=== PATIENT | male | born 1945 | race Caucasian/White ===

== ENCOUNTER 2018-02-23 19:17 | Inpatient (IN) | payer MEDICARE ==
[2018-02-23] MEDS ORDERED: PROVENTIL IH ONE (19:35)
[2018-02-23 19:40] LABS: Basophils # (Auto) 0.1 K/mm3 (0.0-0.1); Basophils % (Auto) 1.3 % (0.0-1.8); Eosinophils # (Auto) 0.3 K/mm3 (0.0-0.4); Eosinophils % (Auto) 4.2 % (0.0-4.3); Hematocrit 47.3 % (35.5-45.6); Hemoglobin 15.4 gm/dl (11.8-15.2); Lymphocytes # (Auto) 1.3 K/mm3 (1.2-5.4); Mean Corpuscular HGB Conc 33 % (32-34); Mean Corpuscular Hemoglobin 28 pg (28-32); Mean Corpuscular Volume 85 fl (84-94); Monocytes # (Auto) 0.5 K/mm3 (0.0-0.8); Monocytes % (Auto) 6.6 % (0.0-7.3); Platelet Count 190 K/mm3 (140-440); Red Blood Count 5.55 M/mm3 (3.65-5.03); Red Cell Distribution Width 15.2 % (13.2-15.2)
[2018-02-23 19:49] LABS: BUN/Creatinine Ratio 13; Blood Urea Nitrogen 13 mg/dL (9-20); Calcium 8.9 mg/dL (8.4-10.2); Hemolysis Index 17
--- NOTE | 2018-02-23 19:54 | XRay Report ---
FINAL REPORT EXAM: XR CHEST 1V AP HISTORY: Shortness of breath TECHNIQUE: 2, portable chest x-rays. PRIORS: None. FINDINGS: Cardiac and mediastinal silhouette within normal limits. Lungs are mildly hyperinflated, without significant vascular congestion. No focal consolidation or apparent pneumothorax. Bony thorax grossly unremarkable. IMPRESSION: 1. No acute findings.
[2018-02-23] MEDS ORDERED: HumuLIN R IV ONE (20:06)
[2018-02-23] MEDS ORDERED: MAGNESIUM SULFATE 2GM/50ML 2 GM/50 ML BAG IV ONE (20:09)
[2018-02-23] MEDS: ATROVENT IH ONE ×2 (20:47→20:53)
[2018-02-23] MEDS: PROVENTIL IH ONE ×2 (20:48→20:53)
--- NOTE | 2018-02-23 23:17 | Emergency Department Report ---
ED Shortness of Breath HPI - General Chief Complaint: Dyspnea/Respdistress Stated Complaint: MONICA Time Seen by Provider: 02/23/18 19:50 Source: patient, EMS Mode of arrival: Stretcher Limitations: No Limitations - History of Present Illness MD Complaint: "asthma attack" - Related Data Allergies Allergy/AdvReac Type Severity Reaction Status Date / Time No Known Allergies Allergy Unverified 02/23/18 19:18 ED Review of Systems ROS: Stated complaint: MONICA Other details as noted in HPI ED Past Medical Hx - Past Medical History Hx Hypertension: Yes Hx COPD: Yes - Social History Smoking Status: Former Smoker Substance Use Type: Alcohol ED Physical Exam - General Limitations: No Limitations ED Course Vital Signs 02/23/18 02/23/18 02/23/18 19:18 19:24 19:34 Temperature 98 F Pulse Rate 109 H 97 H Pulse Rate [ Bilateral Throughout] Respiratory 24 Rate Respiratory Rate [Bilateral Throughout] Blood Pressure 166/90 O2 Sat by Pulse 97 99 99 Oximetry 02/23/18 02/23/18 02/23/18 19:46 19:57 20:00 Temperature Pulse Rate 99 H 102 H Pulse Rate [ 104 H Bilateral Throughout] Respiratory 18 20 Rate Respiratory 20 Rate [Bilateral Throughout] Blood Pressure 145/71 113/74 O2 Sat by Pulse 99 94 Oximetry 02/23/18 02/23/18 02/23/18 20:20 20:30 20:46 Temperature Pulse Rate 99 H 98 H Pulse Rate [ Bilateral Throughout] Respiratory 28 H 24 Rate Respiratory Rate [Bilateral Throughout] Blood Pressure 113/74 138/68 138/68 O2 Sat by Pulse 93 92 94 Oximetry 02/23/18 02/23/18 02/23/18 20:54 21:00 21:16 Temperature Pulse Rate 99 H 97 H Pulse Rate [ 95 H Bilateral Throughout] Respiratory 32 H 29 H 30 H Rate Respiratory 20 Rate [Bilateral Throughout] Blood Pressure 105/52 105/52 O2 Sat by Pulse 92 93 94 Oximetry 02/23/18 02/23/18 02/23/18 21:30 21:46 22:00 Temperature Pulse Rate 94 H 97 H 91 H Pulse Rate [ Bilateral Throughout] Respiratory 28 H 20 25 H Rate Respiratory Rate [Bilateral Throughout] Blood Pressure 128/71 128/71 129/65 O2 Sat by Pulse 94 94 92 Oximetry ED Medical Decision Making - Lab Data Result diagrams: 02/23/18 19:27 02/23/18 19:27 Critical care attestation.: If time is entered above; I have spent that time in minutes in the direct care of this critically ill patient, excluding procedure time. ED Disposition Disposition: 09 OP ADMIT IP TO THIS HOSP Is pt being admited?: Yes Does the pt Need Aspirin: No Condition: Stable Referrals: TRISH CAROLINA MD [Primary Care Provider] - 3-5 Days Time of Disposition: 23:15
--- NOTE | 2018-02-24 00:09 | Event Note ---
Date: 02/23/18 See dictated H/p in reports
[2018-02-24] MEDS ORDERED: TYLENOL PO PRN (00:10)
[2018-02-24] MEDS ORDERED: SODIUM CHLORIDE FLUSH SYRINGE 10 ML IV PRN (00:10)
[2018-02-24] MEDS ORDERED: ZOFRAN IV PRN (00:10)
[2018-02-24] MEDS ORDERED: DUONEB *Not for PRN Use IH (00:14)
[2018-02-24] MEDS ORDERED: HumaLOG SUB-Q ONE ×3 (00:16→03:00)
[2018-02-24] MEDS: PERCOCET 5/325 PO PRN ×2 (03:57→21:21)
--- NOTE | 2018-02-24 07:49 | History and Physical Report ---
CHIEF COMPLAINT: Increasing shortness of breath for 2 weeks, moreso for 2 days. HISTORY OF PRESENT ILLNESS: A 72-year-old male with history of COPD, nicotine dependence, comes in for increasing shortness of breath for 2 weeks, more so for the last 2 days. Cough productive of mucoid sputum. No fever or chills. No exacerbating or relieving factors. The patient does not have any nebulizer machine at home. The patient uses Ventolin inhaler. Follows with [facility], does not have a outpatient facility physical therapist. No recent travel. PAST MEDICAL HISTORY: Significant for COPD and hypertension. PAST SURGICAL HISTORY: None. SOCIAL HISTORY: Used to smoke until a few years ago. Stopped smoking. FAMILY HISTORY: Significant for hypertension. REVIEW OF SYSTEMS: Significant for increasing shortness of breath and cough productive of mucoid sputum. No fever. No chills. A 14-point review of systems done. Otherwise, negative. PHYSICAL EXAMINATION: GENERAL: Elderly male, obese, in moderate respiratory distress, lying in bed. VITAL SIGNS: Blood pressure is 129/75, pulse is 91, temperature is 98, respiratory rate is 16, and sats are 92%. HEENT: Unremarkable. Pupils equal and reactive. NECK: Supple, no lymphadenopathy, no thyromegaly. LUNGS: Bilateral inspiratory and expiratory rhonchi present. Diminished air entry. CARDIOVASCULAR: S1, S2 heard. No gallop, no murmur, no rub. Apical impulse in the left fifth intercostal space and midclavicular line. ABDOMEN: Soft and benign. No hepatosplenomegaly. No guarding, no rigidity. Hernial orifices are normal. EXTREMITIES: Good pedal pulses. No pedal edema. CENTRAL NERVOUS SYSTEM: Alert and oriented x 4, nonfocal exam. SKIN: Normal. LABORATORY DATA: Significant for white count of 7800, H and H is 15.4 and 47.8, platelet count is 190,000. Glucose is 284. Sodium is 134, potassium is 4.6, chloride is 93, and bicarbonate is 31. ABG is not done. Hemoglobin A1c is 11.3. ASSESSMENT AND PLAN: 1. Acute respiratory failure secondary to hypoxia and chronic obstructive pulmonary disease. The patient initiated on intravenous Solu-Medrol, intravenous Levaquin, and DuoNebs q.3 hours as needed and q.6 round the clock. BiPAP if necessary, intubate if necessary. 2. Chronic obstructive pulmonary disease exacerbation . Continue intravenous Levaquin, Solu-Medrol, and DuoNeb. The patient to be discharged on nebulizer machine. The patient does not have a nebulizer machine at home. 3. Diabetes, uncontrolled. The patient initiated on coverage. We will add insulin 70/30, 20 units twice a day. His sugars may run high because of the Solu-Medrol, but his baseline glucose levels are high. His A1c is 11.3. The patient to be discharged on insulin 70/30 and to educate the patient about his uncontrolled diabetes. 4. Hypertension, well controlled. The patient not on any antihypertensives. We will initiate antihypertensives if necessary. 5. Deep venous thrombosis prophylaxis, heparin 5000 q.12. 6. Gastrointestinal prophylaxis, famotidine ordered. JOB# [id number] JOEL/LAURIE
[2018-02-24] MEDS: DUONEB *Not for PRN Use IH SCH ×3 (09:13→22:10)
[2018-02-24] MEDS: HEPARIN SUB-Q SCH ×2 (10:32→21:22)
[2018-02-24] MEDS: LEVAQUIN 750MG/150ML 750 MG/150 ML BAG IV SCH (10:32)
[2018-02-24] MEDS: PEPCID PO SCH ×2 (10:32→21:22)
[2018-02-24] MEDS: SODIUM CHLORIDE FLUSH SYRINGE 10 ML IV SCH ×2 (10:33→21:23)
[2018-02-24] MEDS: HumuLIN R SUB-Q SCH ×3 (12:47→22:22)
--- NOTE | 2018-02-24 14:02 | Progress Note ---
Assessment and Plan Acute on chronic hypoxic and hypercapnic respiratory failure - Secondary to acute COPD exacerbation - Will provide scheduled nebulizers breathing treatment - Place on empiric steroid and antibiotic - will get sputum culture, chest x-ray was unremarkable - Provide supplemental oxygen to keep oxygen saturation above 92% - Consider to consult pulmonary if no improvement in next 24 hours COPD exacerbation - We'll continue on scheduled nebulizer breathing treatment, empiric steroid and antibiotic Diabetes mellitus type 2, uncontrolled, A1c 11.3 - We will continue consistent carbohydrate diet and home regimen for insulin - We'll place on sliding scale of insulin as patient will be on empiric steroid Hypertension, benign - We will resume home medications, monitor BP - Provide DVT prophylaxis with Lovenox. Brief history: This is a 72-year-old male with history of COPD nicotine dependence coming in for increasing shortness of breath for 2 weeks along with productive cough of mucoid sputum. Radiological test: Chest x-ray: No acute infiltrates Hospitalist Physical exam: GENERAL: well-developed and well-nourished male lying on bed appeared to be in no discomfort. HEENT: Normocephalic. Atraumatic. No conjunctival congestion or icterus. Patient has moist mucous membranes. NECK: Supple. Trachea midline. CHEST/LUNGS: Diminished breath sounds auscultated bilaterally, breathing nonlabored. No wheezes crackles or rhonchi. HEART/CARDIOVASCULAR: Regular in rate and rhythm. S1 and S2 positive. ABDOMEN: Abdomen is soft, nontender. Patient has normal bowel sounds. SKIN: There is no rash. Warm and dry. NEURO: No focal motor deficit. Follows command. MUSCULOSKELETAL: No joint effusion or tenderness. EXTRIMITY: No edema, no cyanosis or clubbing. PSYCH: Cooperative. Subjective Date of service: 02/24/18 Interval history: Patient seen and examined. Medical records and medication list reviewed. No acute event overnight noted by the RN. Patient denies any chest pain c/o difficulty breathing with minimal ambulation. Patient is tolerating diet. Discussed plan of care at bedside with patient. Objective - Constitutional Vitals: Vital Signs - 12hr 02/24/18 02/24/18 02/24/18 02:32 03:29 03:57 Temperature 98.3 F Pulse Rate Respiratory 20 20 20 Rate Blood Pressure 151/88 O2 Sat by Pulse Oximetry 02/24/18 02/24/18 02/24/18 04:34 04:57 07:24 Temperature 97.8 F Pulse Rate 84 Respiratory 20 20 Rate Blood Pressure 146/77 O2 Sat by Pulse 92 94 Oximetry 02/24/18 02/24/18 10:00 11:03 Temperature Pulse Rate 83 Respiratory 18 Rate Blood Pressure O2 Sat by Pulse Oximetry - Labs CBC & Chem 7: 02/23/18 19:27 02/23/18 19:27 Labs: Abnormal lab results 02/23/18 02/23/18 02/23/18 Range/Units 19:27 19:27 22:57 RBC 5.55 H (3.65-5.03) M/mm3 Hgb 15.4 H (11.8-15.2) gm/dl Hct 47.3 H (35.5-45.6) % Seg Neutrophils % 70.9 H (40.0-70.0) % Sodium 134 L (137-145) mmol/L Chloride 93.5 L (98-107) mmol/L Carbon Dioxide 31 H (22-30) mmol/L Glucose 422 H (75-100) mg/dL POC Glucose 284 H (70-105) Hemoglobin A1c (4-6) % 02/24/18 02/24/18 02/24/18 Range/Units 00:19 02:32 07:47 RBC (3.65-5.03) M/mm3 Hgb (11.8-15.2) gm/dl Hct (35.5-45.6) % Seg Neutrophils % (40.0-70.0) % Sodium (137-145) mmol/L Chloride (98-107) mmol/L Carbon Dioxide (22-30) mmol/L Glucose (75-100) mg/dL POC Glucose 335 H 326 H (70-105) Hemoglobin A1c 11.3 H (4-6) % 02/24/18 Range/Units 11:55 RBC (3.65-5.03) M/mm3 Hgb (11.8-15.2) gm/dl Hct (35.5-45.6) % Seg Neutrophils % (40.0-70.0) % Sodium (137-145) mmol/L Chloride (98-107) mmol/L Carbon Dioxide (22-30) mmol/L Glucose (75-100) mg/dL POC Glucose 381 H (70-105) Hemoglobin A1c (4-6) %
[2018-02-24] MEDS ORDERED: PROVENTIL IH PRN (17:00)
[2018-02-24] MEDS: MORPHINE IV PRN (23:26)
[2018-02-25 06:27] LABS: Hematocrit 49.2 % (35.5-45.6); Hemoglobin 15.9 gm/dl (11.8-15.2); Mean Corpuscular HGB Conc 32 % (32-34); Mean Corpuscular Hemoglobin 28 pg (28-32); Mean Corpuscular Volume 86 fl (84-94); Platelet Count 216 K/mm3 (140-440); Red Blood Count 5.74 M/mm3 (3.65-5.03); Red Cell Distribution Width 15.3 % (13.2-15.2)
[2018-02-25 06:36] LABS: Alanine Aminotransferase 39 units/L (7-56); BUN/Creatinine Ratio 24; Blood Urea Nitrogen 19 mg/dL (9-20); Calcium 9.1 mg/dL (8.4-10.2); Hemolysis Index 31
[2018-02-25] MEDS: DUONEB *Not for PRN Use IH SCH ×3 (07:24→20:59)
[2018-02-25] MEDS: HumuLIN R SUB-Q SCH ×4 (08:31→23:37)
[2018-02-25 08:42] LABS: Basophils % (Manual) 0 % (0.0-1.8); Eosinophils % (Manual) 0 % (0.0-4.3); Total Cells Counted 100
[2018-02-25 08:43] LABS: Platelet Estimate Consistent w Auto; RBC Morphology Normal
[2018-02-25] MEDS: LEVAQUIN 750MG/150ML 750 MG/150 ML BAG IV SCH (09:59)
[2018-02-25] MEDS: HEPARIN SUB-Q SCH ×2 (09:59→23:39)
[2018-02-25] MEDS: PEPCID PO SCH ×2 (10:17→23:37)
[2018-02-25] MEDS: SODIUM CHLORIDE FLUSH SYRINGE 10 ML IV SCH ×2 (10:17→23:39)
[2018-02-25] MEDS: MORPHINE IV PRN (13:31)
--- NOTE | 2018-02-25 17:10 | Progress Note ---
Assessment and Plan Acute hypoxic and hypercapnic respiratory failure - Secondary to acute COPD exacerbation - Will provide scheduled nebulizers breathing treatment - cont on tapering empiric steroid and antibiotic - chest x-ray was unremarkable - Provide supplemental oxygen to keep oxygen saturation above 92% COPD exacerbation - We'll continue on scheduled nebulizer breathing treatment, empiric steroid and antibiotic Diabetes mellitus type 2, uncontrolled, A1c 11.3 - We will continue consistent carbohydrate diet and home regimen for insulin - On sliding scale of insulin as patient will be on empiric steroid Hypertension, benign - Resumed home medications, monitor BP - Provide DVT prophylaxis with Lovenox. Brief history: This is a 72-year-old male with history of COPD nicotine dependence coming in for increasing shortness of breath for 2 weeks along with productive cough of mucoid sputum. Radiological test: Chest x-ray: No acute infiltrates Hospitalist Physical exam: GENERAL: well-developed and well-nourished male lying on bed appeared to be in no discomfort. HEENT: Normocephalic. Atraumatic. No conjunctival congestion or icterus. Patient has moist mucous membranes. NECK: Supple. Trachea midline. CHEST/LUNGS: Diminished breath sounds auscultated bilaterally, breathing nonlabored. No wheezes crackles or rhonchi. HEART/CARDIOVASCULAR: Regular in rate and rhythm. S1 and S2 positive. ABDOMEN: Abdomen is soft, nontender. Patient has normal bowel sounds. SKIN: There is no rash. Warm and dry. NEURO: No focal motor deficit. Follows command. MUSCULOSKELETAL: No joint effusion or tenderness. EXTRIMITY: No edema, no cyanosis or clubbing. PSYCH: Cooperative. Subjective Date of service: 02/25/18 Interval history: Patient seen and examined. Medical records and medication list reviewed. No acute event overnight noted by the RN. Patient denies any chest pain c/o difficulty breathing with minimal ambulation. Patient is tolerating diet. states not in his baseline yet Discussed plan of care at bedside with patient. Objective - Constitutional Vitals: Vital Signs - 12hr 02/25/18 02/25/18 02/25/18 07:09 07:24 07:36 Temperature 97.5 F L Pulse Rate 76 Pulse Rate [ 91 H 96 H Anterior Bilateral Throughout] Respiratory 22 Rate Respiratory 16 16 Rate [Anterior Bilateral Throughout] Blood Pressure 124/69 O2 Sat by Pulse 95 Oximetry 02/25/18 02/25/18 02/25/18 10:00 13:46 13:50 Temperature Pulse Rate Pulse Rate [ 85 Anterior Bilateral Throughout] Respiratory Rate Respiratory 16 Rate [Anterior Bilateral Throughout] Blood Pressure 146/84 O2 Sat by Pulse 98 Oximetry 02/25/18 14:00 Temperature 99 F Pulse Rate Pulse Rate [ Anterior Bilateral Throughout] Respiratory 20 Rate Respiratory Rate [Anterior Bilateral Throughout] Blood Pressure O2 Sat by Pulse Oximetry - Labs CBC & Chem 7: 02/25/18 05:32 02/25/18 05:32 Labs: Abnormal lab results 02/24/18 02/25/18 02/25/18 Range/Units 22:12 05:32 05:32 WBC 12.5 H (4.5-11.0) K/mm3 RBC 5.74 H (3.65-5.03) M/mm3 Hgb 15.9 H (11.8-15.2) gm/dl Hct 49.2 H (35.5-45.6) % RDW 15.3 H (13.2-15.2) % Seg Neuts % (Manual) 94.0 H (40.0-70.0) % Lymphocytes % (Manual) 4.0 L (13.4-35.0) % Seg Neutrophils # Man 11.8 H (1.8-7.7) K/mm3 Lymphocytes # (Manual) 0.5 L (1.2-5.4) K/mm3 Sodium 133 L (137-145) mmol/L Potassium 5.3 H (3.6-5.0) mmol/L Chloride 91.3 L (98-107) mmol/L Glucose 395 H (75-100) mg/dL POC Glucose 358 H (70-105) 02/25/18 02/25/18 02/25/18 Range/Units 07:13 12:29 16:26 WBC (4.5-11.0) K/mm3 RBC (3.65-5.03) M/mm3 Hgb (11.8-15.2) gm/dl Hct (35.5-45.6) % RDW (13.2-15.2) % Seg Neuts % (Manual) (40.0-70.0) % Lymphocytes % (Manual) (13.4-35.0) % Seg Neutrophils # Man (1.8-7.7) K/mm3 Lymphocytes # (Manual) (1.2-5.4) K/mm3 Sodium (137-145) mmol/L Potassium (3.6-5.0) mmol/L Chloride (98-107) mmol/L Glucose (75-100) mg/dL POC Glucose 287 H 317 H 358 H (70-105)
[2018-02-26] MEDS: MORPHINE IV PRN (01:04)
[2018-02-26] MEDS: DUONEB *Not for PRN Use IH SCH ×2 (07:29→13:09)
[2018-02-26] MEDS: HumuLIN R SUB-Q SCH ×2 (08:21→11:54)
[2018-02-26] MEDS: HEPARIN SUB-Q SCH (09:41)
[2018-02-26] MEDS: PEPCID PO SCH (09:41)
[2018-02-26] MEDS: SODIUM CHLORIDE FLUSH SYRINGE 10 ML IV SCH (09:42)
[2018-02-26] MEDS ORDERED: LEVAQUIN PO SCH (10:00)
[2018-02-26] MEDS: PERCOCET 5/325 PO PRN (10:43)
--- NOTE | 2018-02-26 13:53 | Discharge Summary ---
Providers - Providers Date of Admission: 02/24/18 00:15 Date of discharge: 02/26/18 Attending physician: NELSON OSCAR 02/24/18 02:50 Consult to Dietitian/Nutrition [CONS] Routine Physician Instructions: New onset Diabetes Reason For Exam: Reason for Consult: Diet education Primary care physician: TRISH CAROLINA Hospitalization Condition: Stable Hospital course: Brief history: This is a 72-year-old male with history of COPD, nicotine dependence coming in for increasing shortness of breath for 2 weeks along with productive cough of mucoid sputum. He was admitted for further evaluation and management. Discharge diagnosis and management. Acute hypoxic and hypercapnic respiratory failure - Secondary to acute COPD exacerbation - managed with scheduled nebulizers breathing treatment, tapering empiric steroid and antibiotic - chest x-ray was unremarkable - Provided supplemental oxygen to keep oxygen saturation above 92% COPD exacerbation - placed on scheduled nebulizer breathing treatment, empiric steroid and antibiotic Diabetes mellitus type 2, uncontrolled, A1c 11.3 - started on consistent carbohydrate diet and home regimen for insulin - Also given sliding scale of insulin as patient was placed on empiric steroid -His long-acting insulin dose was increased to 25 units twice a day Hypertension, benign - monitored BP, placed on amlodipine on discharge - Provide DVT prophylaxis with Lovenox. Disposition: Home with family support in stable condition. Radiological test: Chest x-ray: No acute infiltrates Hospitalist Physical exam: GENERAL: well-developed and well-nourished male lying on bed appeared to be in no discomfort. HEENT: Normocephalic. Atraumatic. No conjunctival congestion or icterus. Patient has moist mucous membranes. NECK: Supple. Trachea midline. CHEST/LUNGS: Diminished breath sounds auscultated bilaterally, breathing nonlabored. No wheezes crackles or rhonchi. HEART/CARDIOVASCULAR: Regular in rate and rhythm. S1 and S2 positive. ABDOMEN: Abdomen is soft, nontender. Patient has normal bowel sounds. SKIN: There is no rash. Warm and dry. NEURO: No focal motor deficit. Follows command. MUSCULOSKELETAL: No joint effusion or tenderness. EXTRIMITY: No edema, no cyanosis or clubbing. PSYCH: Cooperative. Disposition: TO HOME OR SELFCARE Time spent for discharge: 32 minutes Core Measure Documentation - Palliative Care Palliative Care/ Comfort Measures: Not Applicable - Core Measures Any of the following diagnoses?: none Exam - Constitutional Vitals: Temp Pulse Resp BP Pulse Ox 98.4 F 74 20 127/72 95 02/26/18 07:43 02/26/18 10:00 02/26/18 10:43 02/26/18 07:43 02/26/18 10:00 Plan Activity: advance as tolerated Weight Bearing Status: Weight Bear as Tolerated Diet: diabetic Follow up with: TRISH CAROLINA MD [Primary Care Provider] - 3-5 Days Prescriptions: ALBUTEROL Inhaler [Proair] 2 puff IH QID PRN 30 Days #1 device PRN Reason: Shortness Of Breath amLODIPine [Norvasc] 10 mg PO DAILY #30 tab Budesonide/Formoterol Fumarate [Symbicort 160-4.5 Mcg Inhaler] 10.2 gm IH BID 30 Days #1 [email or web address] Insulin NPH/Regular [NovoLIN 70/30] 25 unit SUB-Q BIDDIAB 30 Days units Insulin Regular, Human [HumuLIN R] See Protocol SUB-Q ACHS 30 Days units Levofloxacin [Levaquin TAB] 750 mg PO Q24HR #4 tablet Prednisone 50 mg PO QAC #5 tablet
[2018-02-26 14:39] VITALS: BP 159/81
== END 2018-02-26 15:25 | disposition home or self-care (01) | DRG 189 ==
LOC: ED 19:17 → 2B-ACE 02-24 00:15
PROVIDERS: ADMIT Internal Medicine; ATTEND Internal Medicine
DX: J96.21 Acute and chronic respiratory failure with hypoxia (principal); J44.1 Chronic obstructive pulmonary disease with (acute) exacerbation; J96.22 Acute and chronic respiratory failure with hypercapnia; E11.65 Type 2 diabetes mellitus with hyperglycemia; I10 Essential (primary) hypertension; Z87.891 Personal history of nicotine dependence; Z82.49 Family history of ischemic heart disease and other diseases of the circulatory system
CPT/HCPCS: 36415; 71045; 80048; 80053; 82962; 83036; 85007; 85025; 93005; 93010; 94640; 94644; 94760; 96365; 96375; J1644; J1815; J1956; J2270; J2920; J2930; J3475

== ENCOUNTER 2020-03-17 21:56 | Inpatient (IN) | payer MEDICARE ==
--- NOTE | 2020-03-17 22:14 | Emergency Department Report ---
ED General Adult HPI - General Stated complaint: GENERAL WEAKNESS/TESTICULAR SWELLING Time Seen by Provider: 03/17/20 22:03 Source: patient, EMS - History of Present Illness Initial comments: Patient is 74 years old male with history of hypertension, diabetes, BPH, COPD and asthma. Patient brought to the emergency room via EMS from home for evaluation of urine retention and right testicular swelling started today. Patient stated that he had similar episode in January where he had a Haskins catheter for a week. Patient also noticed to have a shortness of breath. Patient stated that he is having bilateral lower extremity swelling. Patient denied any fever or chills. No nausea or vomiting. No chest pain. - Related Data Previous Rx's Medication Instructions Recorded Last Taken Type Albuterol INH(or & Nicu Only) 2 puff IH QID PRN 30 Days #1 device 02/26/18 Unknown Rx [Proair] Budesonide/Formoterol Fumarate 10.2 gm IH BID 30 Days #1 02/26/18 Unknown Rx [Symbicort 160-4.5 Mcg Inhaler] [email or web address] Insulin NPH/Regular [NovoLIN 70/30] 25 unit SUB-Q BIDDIAB 30 Days 02/26/18 Unknown Rx units Insulin Regular, Human [HumuLIN R] See Protocol SUB-Q ACHS 30 Days 02/26/18 Unknown Rx units amLODIPine 10 mg PO DAILY #30 tab 02/26/18 Unknown Rx levoFLOXacin [Levaquin TAB] 750 mg PO Q24HR #4 tablet 02/26/18 Unknown Rx predniSONE [Prednisone] 50 mg PO QAC #5 tablet 02/26/18 Unknown Rx Allergies Allergy/AdvReac Type Severity Reaction Status Date / Time No Known Allergies Allergy Unverified 02/23/18 19:18 ED Review of Systems ROS: Stated complaint: GENERAL WEAKNESS/TESTICULAR SWELLING Other details as noted in HPI Comment: All other systems reviewed and negative Constitutional: denies: chills, fever Respiratory: orthopnea, shortness of breath, SOB with exertion, SOB at rest. denies: cough Cardiovascular: denies: chest pain, palpitations, dyspnea on exertion Gastrointestinal: denies: abdominal pain, nausea, vomiting Genitourinary: testicular mass (Swelling) Musculoskeletal: denies: back pain ED Past Medical Hx - Past Medical History Hx Hypertension: Yes Hx Diabetes: Yes Hx GERD: Yes Hx Asthma: Yes Hx COPD: Yes - Surgical History Hx Cholecystectomy: Yes - Social History Smoking Status: Never Smoker Substance Use Type: None - Medications Home Medications: Home Medications Medication Instructions Recorded Confirmed Last Taken Type Albuterol INH(or & Nicu Only) 2 puff IH QID PRN 30 Days #1 device 02/26/18 Unknown Rx [Proair] Budesonide/Formoterol Fumarate 10.2 gm IH BID 30 Days #1 02/26/18 Unknown Rx [Symbicort 160-4.5 Mcg Inhaler] [email or web address] Insulin NPH/Regular [NovoLIN 70/30] 25 unit SUB-Q BIDDIAB 30 Days 02/26/18 Unknown Rx units Insulin Regular, Human [HumuLIN R] See Protocol SUB-Q ACHS 30 Days 02/26/18 Unknown Rx units amLODIPine 10 mg PO DAILY #30 tab 02/26/18 Unknown Rx levoFLOXacin [Levaquin TAB] 750 mg PO Q24HR #4 tablet 02/26/18 Unknown Rx predniSONE [Prednisone] 50 mg PO QAC #5 tablet 02/26/18 Unknown Rx ED Physical Exam - General General appearance: alert, in no apparent distress - Head Head exam: Present: atraumatic, normocephalic, normal inspection - Eye Eye exam: Present: normal appearance, PERRL - ENT ENT exam: Present: normal exam, normal orophraynx, mucous membranes moist - Neck Neck exam: Present: normal inspection, full ROM. Absent: tenderness, meningis mus - Respiratory Respiratory exam: Present: wheezes, rales - Cardiovascular Cardiovascular Exam: Present: regular rate, normal rhythm, normal heart sounds - GI/Abdominal GI/Abdominal exam: Present: soft, normal bowel sounds. Absent: distended, tenderness, guarding, rebound, rigid, organomegaly, mass, bruit, pulsatile mass, hernia - Extremities Exam Extremities exam: Present: normal inspection, full ROM, normal capillary refill - Back Exam Back exam: Present: normal inspection, full ROM. Absent: CVA tenderness (R), CVA tenderness (L) - Neurological Exam Neurological exam: Present: alert, oriented X3, CN II-XII intact - Psychiatric Psychiatric exam: Present: normal mood - Skin Skin exam: Present: warm, intact, normal color ED Course Vital Signs 03/17/20 03/17/20 03/17/20 22:15 22:27 23:04 Temperature 99.1 F Pulse Rate 106 H Respiratory 24 24 24 Rate Blood Pressure 105/59 Blood Pressure 105/59 [Right] O2 Sat by Pulse 99 99 Oximetry 03/18/20 03/18/20 02:00 03:01 Temperature Pulse Rate 95 H 95 H Respiratory 22 24 Rate Blood Pressure Blood Pressure 100/52 87/53 [Right] O2 Sat by Pulse 95 96 Oximetry ED Medical Decision Making - Lab Data Result diagrams: 03/17/20 22:20 03/17/20 22:20 - EKG Data -: EKG Interpreted by Me EKG shows normal: sinus rhythm Rate: normal - EKG Data When compared to previous EKG there are: no significant change - Radiology Data Radiology results: report reviewed - Medical Decision Making Patient is 74 years old male with history of hypertension, diabetes, BPH, COPD and asthma. Patient brought to the emergency room via EMS from home for evaluation of urine retention and right testicular swelling started today. Patient stated that he had similar episode in January where he had a Haskins catheter for a week. Patient also noticed to have a shortness of breath. Patient stated that he is having bilateral lower extremity swelling. Patient denied any fever or chills. No nausea or vomiting. No chest pain. Haskins catheter immediately placed and only 200cc brain immediately. Labs reviewed and showed a white blood cells of 22,000. Chest x-ray showed left l ower lobe infiltrate. Urine is strongly positive for UTI with white blood cells more than 180. Patient treated as sepsis. Patient received normal saline, Levaquin and morphine for pain. Testicular ultrasound showed right hydrocele. I discussed the patient with Dr. Devine from [facility] and he advised that the patient can be admitted to [facility]. I discussed the patient with Dr. Regina Briggs, she agreed to admit the patient to medical service for further management. Critical Care Time: Yes Critical care time in (mins) excluding proc time.: 30 Critical care attestation.: If time is entered above; I have spent that time in minutes in the direct care of this critically ill patient, excluding procedure time. ED Disposition Clinical Impression: Sepsis, Left lower lobe pneumonia, UTI (urinary tract infection) Disposition: OP ADMIT IP TO THIS HOSP Is pt being admited?: Yes Condition: Stable Instructions: Bacterial Pneumonia (ED) Referrals: NIKOS RINCON [Other] - 3-5 Days
[2020-03-17 22:32] LABS: Hemoglobin 11.5 gm/dl (11.8-15.2); Mean Corpuscular HGB Conc 33 % (32-34); Mean Corpuscular Volume 85 fl (84-94); Platelet Count 228 K/mm3 (140-440); Red Blood Count 4.14 M/mm3 (3.65-5.03); Red Cell Distribution Width 15.4 % (13.2-15.2)
[2020-03-17 22:42] LABS: INR 1.17 (0.87-1.13)
[2020-03-17 22:43] LABS: Partial Thromboplastin Time 25.7 Sec. (24.2-36.6)
--- NOTE | 2020-03-17 22:46 | XRay Report ---
CHEST 1 VIEW INDICATION: Dyspnea. COMPARISON: 02/23/2018 FINDINGS: Support devices: None. Heart: Within normal limits. Lungs/Pleura: Minimal streaky left basilar airspace disease with otherwise clear lungs. Additional findings: None. IMPRESSION: 1. Pulmonary findings as above. Signer Name: Hank Jimenez MD Signed: 03/17/2020 10:42 PM Workstation Name: [id number]
[2020-03-17 22:51] LABS: BUN/Creatinine Ratio 17; Blood Urea Nitrogen 24 mg/dL (9-20); Calcium 9.1 mg/dL (8.4-10.2); Hemolysis Index 26
[2020-03-17 22:53] LABS: Albumin 3.4 g/dL (3.9-5); Bilirubin,Direct 0.2 mg/dL (0-0.2)
[2020-03-17] MEDS ORDERED: ONDANSETRON 4 MG/2 ML INJ IV ONE (23:02)
[2020-03-17] MEDS ORDERED: MORPHINE 4 MG/1 ML INJ IV ONE (23:02)
[2020-03-17] MEDS ORDERED: ONDANSETRON 4 MG/2 ML INJ ONE (23:06)
[2020-03-17] MEDS ORDERED: MORPHINE 4 MG/1 ML INJ ONE (23:06)
[2020-03-17 23:14] LABS: Basophils % (Manual) 0 % (0.0-1.8); Eosinophils % (Manual) 0 % (0.0-4.3); RBC Morphology Normal; Total Cells Counted 100
[2020-03-18 00:04] LABS: Bacteria,Urine 2+ /HPF (Negative); Bilirubin,Urine NEG (Negative); Blood,Urine MOD (Negative); Color,Urine Yellow (Yellow); Mucus,Urine 2+ /HPF; Urobilinogen,Urine < 2.0 mg/dL (<2.0)
[2020-03-18 00:07] LABS: WBC,Urine > 182.0 /HPF (0.0-6.0)
[2020-03-18] MEDS ORDERED: SODIUM CHLORIDE 0.9% 1000 ML 1,000 ML IV ONE (02:10)
--- NOTE | 2020-03-18 02:12 | Ultrasound Report ---
Scrotal Ultrasound HISTORY: Right testicular swelling. TECHNIQUE: Grayscale and color imaging performed. COMPARISON: None FINDINGS: The exam is of suboptimal quality, especially for demonstrating the right-sided epididymis. The right testicle measures 5.3 x 3.7 x 3.8 cm with preserved blood flow. There is a moderate-sized hydrocele. Again the right-sided epididymis is not well demonstrated on this exam. Left testicle measures 4.9 x 2.7 x 4.0 cm. There is preserved blood flow. The epididymis is unremarka ble. No hydrocele. IMPRESSION: Poor demonstration of the right-sided epididymis on this exam. There is a moderate-sized hydrocele. Signer Name: Hank Jimenez MD Signed: 03/18/2020 2:08 AM Workstation Name: [id number]
[2020-03-18] MEDS ORDERED: MORPHINE 2 MG/1 ML INJ ONE (02:53)
[2020-03-18] MEDS ORDERED: MORPHINE 2 MG/1 ML INJ IV ONE (02:57)
[2020-03-18] MEDS ORDERED: SODIUM CHLORIDE 0.9% 1000 ML IV SOLN IV ONE (03:00)
[2020-03-18 04:39] LABS: C-Reactive Protein 26.6 mg/dL (0.00-1.30)
--- NOTE | 2020-03-18 04:41 | History and Physical Report ---
History of Present Illness History of present illness: 74-year-old man with a history of hypertension, diabetes, BPH, COPD comes emergency room for evaluation. Patient states that over the last 1 day he was unable to urinate and his right testicle was painful over the last 2 days. He denies fever, cough, chills, diarrhea, sick contact, dysuria, frequency. The patient will be admitted for urinary retention, UTI, testicular pain Review Of Systems: Constitutional: no weight loss, fever, chills Ears, eyes, nose, mouth and throat: no nasal congestion, no nasal discharge, no sinus pressure, blurry vision, diplopia Neck: No neck pain or rigidity. Cardiovascular: No palpitations, chest pain Respiratory: No shortness of breath, cough Gastrointestinal: No hematochezia Genitourinary : no dysuria, frequency Musculoskeletal: no muscle ache , joint pain Integumentary: no rash, no pruritis Neurological: no parathesias, focal weakness Endocrine: no cold or heat intolerance, no polyuria or polydipsia Hematologic/Lymphatic: no easy bruising, no easy bleeding, no gland swelling Allergic/Immunologic: no urticaria, no angioedema. PAST MEDICAL HISTORY: hypertension, diabetes, BPH, COPD PAST SURGICAL HISTORY: Cholecystectomy SOCIAL HISTORY: Denies alcohol, tobacco, drugs FAMILY HISTORY: Hypertension Medications and Allergies Allergies Allergy/AdvReac Type Severity Reaction Status Date / Time No Known Allergies Allergy Unverified 02/23/18 19:18 Home Medications Medication Instructions Recorded Confirmed Last Taken Type Albuterol INH(or & Nicu Only) 2 puff IH QID PRN 30 Days #1 device 02/26/18 Unknown Rx [Proair] Budesonide/Formoterol Fumarate 10.2 gm IH BID 30 Days #1 02/26/18 Unknown Rx [Symbicort 160-4.5 Mcg Inhaler] hfa.aer.ad Insulin NPH/Regular [NovoLIN 70/30] 25 unit SUB-Q BIDDIAB 30 Days 02/26/18 Unknown Rx units Insulin Regular, Human [HumuLIN R] See Protocol SUB-Q ACHS 30 Days 02/26/18 Unknown Rx units amLODIPine 10 mg PO DAILY #30 tab 02/26/18 Unknown Rx levoFLOXacin [Levaquin TAB] 750 mg PO Q24HR #4 tablet 02/26/18 Unknown Rx predniSONE [Prednisone] 50 mg PO QAC #5 tablet 02/26/18 Unknown Rx Exam - Physical Exam Narrative exam: Gen. appearance: Patient lying in bed, no apparent distress HEENT: Normocephalic, atraumatic, pupils equally round and reactive to light, extraocular movement intact, and no sclericterus,. No JVD or thyromegaly or nodule,neck supple, no carotid bruit ,mucous membranes moist, no exudate or erythema Heart: S1, S2, regular rate and rhythm Lungs: Crackles, breathing comfortable Abdomen: Positive bowel sounds, nontender, nondistended, no organomegaly Extremity: no edema, cyanosis, clubbing Skin: No rash, nodules, warm, dry Neuro: Cranial nerves II through XII, speech is fluent, moves extremities, sensory intact - Constitutional Vitals: Temp Pulse Resp BP Pulse Ox 99.1 F 95 H 24 87/53 96 03/17/20 22:15 03/18/20 03:01 03/18/20 03:01 03/18/20 03:01 03/18/20 03:01 Results - Labs CBC & Chem 7: 03/17/20 22:20 03/18/20 03:27 Labs: Abnormal lab results 03/17/20 03/17/20 03/17/20 Range/Units 22:20 22:20 22:20 WBC 22.0 H (4.5-11.0) K/mm3 Hgb 11.5 L (11.8-15.2) gm/dl Hct 35.0 L (35.5-45.6) % RDW 15.4 H (13.2-15.2) % Seg Neuts % (Manual) 88.0 H (40.0-70.0) % Lymphocytes % (Manual) 7.0 L (13.4-35.0) % Seg Neutrophils # Man 19.4 H (1.8-7.7) K/mm3 Monocytes # (Manual) 1.1 H (0.0-0.8) K/mm3 INR 1.17 H (0.87-1.13) D-Dimer (0-234) ng/mlDDU Sodium 134 L (137-145) mmol/L Chloride 89.7 L (98-107) mmol/L Carbon Dioxide 31 H (22-30) mmol/L BUN 24 H (9-20) mg/dL Glucose 160 H (75-100) mg/dL Lactate Dehydrogenase (91-180) units/L C-Reactive Protein (0.00-1.30) mg/dL NT-Pro-B Natriuret Pep (0-900) pg/mL Albumin (3.9-5) g/dL Urine WBC (Auto) (0.0-6.0) /HPF 03/17/20 03/17/20 03/18/20 Range/Units 22:20 23:02 03:27 WBC (4.5-11.0) K/mm3 Hgb (11.8-15.2) gm/dl Hct (35.5-45.6) % RDW (13.2-15.2) % Seg Neuts % (Manual) (40.0-70.0) % Lymphocytes % (Manual) (13.4-35.0) % Seg Neutrophils # Man (1.8-7.7) K/mm3 Monocytes # (Manual) (0.0-0.8) K/mm3 INR (0.87-1.13) D-Dimer 701.67 H (0-234) ng/mlDDU Sodium (137-145) mmol/L Chloride (98-107) mmol/L Carbon Dioxide (22-30) mmol/L BUN (9-20) mg/dL Glucose (75-100) mg/dL Lactate Dehydrogenase (91-180) units/L C-Reactive Protein (0.00-1.30) mg/dL NT-Pro-B Natriuret Pep 1041 H (0-900) pg/mL Albumin 3.4 L (3.9-5) g/dL Urine WBC (Auto) > 182.0 H (0.0-6.0) /HPF 03/18/20 Range/Units 03:27 WBC (4.5-11.0) K/mm3 Hgb (11.8-15.2) gm/dl Hct (35.5-45.6) % RDW (13.2-15.2) % Seg Neuts % (Manual) (40.0-70.0) % Lymphocytes % (Manual) (13.4-35.0) % Seg Neutrophils # Man (1.8-7.7) K/mm3 Monocytes # (Manual) (0.0-0.8) K/mm3 INR (0.87-1.13) D-Dimer (0-234) ng/mlDDU Sodium (137-145) mmol/L Chloride (98-107) mmol/L Carbon Dioxide (22-30) mmol/L BUN (9-20) mg/dL Glucose 181 H (75-100) mg/dL Lactate Dehydrogenase 352 H (91-180) units/L C-Reactive Protein 26.60 H (0.00-1.30) mg/dL NT-Pro-B Natriuret Pep (0-900) pg/mL Albumin (3.9-5) g/dL Urine WBC (Auto) (0.0-6.0) /HPF - Imaging and Cardiology EKG: image reviewed Chest x-ray: report reviewed Assessment and Plan Testicular ultrasound reviewed Assessment Sepsis/Urinary retention/hydrocele status post Haskins, consult urology Pneumonia, possible cOVID Start IV antibiotic, follow cultures Initiate COVID order set Consult infectious disease Hypertension Continue appropriate outpatient medications Diabetes Check fingersticks, start sliding scale DVT prophylaxis
[2020-03-18] MEDS ORDERED: ACETAMINOPHEN 325 MG TAB PO PRN (05:17)
[2020-03-18] MEDS ORDERED: ONDANSETRON 4 MG/2 ML INJ IV PRN (05:17)
[2020-03-18] MEDS ORDERED: SODIUM CHLORIDE 0.9% 1000 ML 1,000 ML IV SCH (05:30)
[2020-03-18] MEDS ORDERED: DEXTROSE 50% IN WATER (25GM) 50 ML SYRINGE IV PRN (06:54)
[2020-03-18] MEDS ORDERED: CEFEPIME/NS 1 GM/100 ML 1 GM/100 ML BAG IV SCH (07:00)
[2020-03-18] MEDS: SODIUM CHLORIDE 0.9% 1000 ML 1,000 ML IV SCH ×2 (09:01→23:50)
[2020-03-18] MEDS: INSULIN LISPRO 100 UNIT/ML SUB-Q SCH ×3 (09:19→19:19)
[2020-03-18 09:33] LABS: Hematocrit 35.5 % (35.5-45.6); Hemoglobin 11.4 gm/dl (11.8-15.2); Mean Corpuscular HGB Conc 32 % (32-34); Mean Corpuscular Volume 85 fl (84-94); Platelet Count 216 K/mm3 (140-440); Red Blood Count 4.19 M/mm3 (3.65-5.03); Red Cell Distribution Width 15.8 % (13.2-15.2)
[2020-03-18] MEDS ORDERED: ENOXAPARIN 30 MG/0.3 ML INJ SUB-Q SCH (10:00)
[2020-03-18] MEDS: CEFEPIME/NS 2 GM/100 ML 2 GM/100 ML BAG IV SCH ×2 (10:01→23:49)
[2020-03-18] MEDS: ENOXAPARIN 40 MG/0.4 ML INJ SUB-Q SCH (10:08)
[2020-03-18 10:39] LABS: Eosinophils % (Manual) 0 % (0.0-4.3); Total Cells Counted 100
[2020-03-18 10:40] LABS: Platelet Estimate Consistent w Auto; RBC Morphology Normal
[2020-03-18] MEDS: oxyCODONE /ACETAMINOPHEN 5-325MG TAB PO PRN ×2 (13:44→20:30)
--- NOTE | 2020-03-18 15:12 | Vascular Lab Report ---
DUPLEX DOPPLER LOWER EXTREMITY VEINS, BILATERAL INDICATION: dvt. TECHNIQUE: Duplex doppler imaging was performed through the veins of both lower extremities using ve nous compression and other maneuvers. COMPARISON: No relevant prior imaging study available. FINDINGS: Right Common femoral vein: Negative. Right Superficial femoral vein: Negative. Right Popliteal vein: Negative. Right Calf veins: Negative. Left Common femoral vein: Negative. Left Superficial femoral vein: Negative. Left Popliteal vein: Negative. Left Calf veins: Negative. Additional findings: None.. IMPRESSION: No sonographic evidence for DVT in either lower extremity. Signer Name: Dyllan Girard Jr, MD Signed: 03/18/2020 3:07 PM Workstation Name: [id number]
--- NOTE | 2020-03-18 16:19 | Consultation ---
History of Present Illness - Reason for Consult Consult date: 03/18/20 possible COVID Requesting physician: KIARA PASTOR - History of Present Illness 74 y/o male with a history of hypertension, diabetes, BPH, COPD, mordid obesity, admitted on 03/17/2020 due to 2-day history of right testicle edema, pain and erythema associated with 24 hour-history of inability to urinate . He denies fever, cough, chills, diarrhea, sick contact, dysuria, frequency. On arrival, temp 99.1, HRT 106, R 24, BP 105/59, WBC 22, CRP 26, creat 1.4, BNP 1041, Procal 8.7, Ddimer 701, ferritim 405, LDH 352. UA with 182 wbc, large LE. Blood culture 03/17/2020 no growth so far. COVID negative. Testicular US with moderate right hydrocele. CXR with LLL infiltrate. Graham placed in the ED> Review of Systems: positive in bold print General: no fever, no chills, +malaise Cutaneous: rash, pruritus Head: headaches or injury Eyes: changes in vision, eye pain, double vision Ears: ear pain, ear discharge, ringing or hearing loss Nose: nose bleeding, stuffiness Mouth & throat: bleeding gums, horseness, no dental problems, or swollen glands Neck: no pain, node enlargement/lumps, tyroid enlargement or tenderness Respiratory: +SOB, no cough, no RATLIFF, wheezing, sputum, hemoptysis, pleuritic chest pain Cardiovascular: chest pain, leg edema, cyanosis, RATLIFF, orthopnea Musculoskeletal: no edema Gastrointestinal: nausea, vomiting, hematemesis, diarrhea, constipation, melena, bright red blood in stools, fecal incontinence, jaundice Genitourinary/Reproductive: frequent urination, dysuria, hematuria, incontinence +anuria, +right testicular edema and pain Neurogical: seizures, headaches, weakness, paresthesias, loss of speech or vision; memory loss, vertigo, tremors, numbness Psychiatric: stable mood; excessive anxiety, sadness or moodiness Medications and Allergies Allergies Allergy/AdvReac Type Severity Reaction Status Date / Time No Known Allergies Allergy Unverified 02/23/18 19:18 Home Medications Medication Instructions Recorded Confirmed Last Taken Type Albuterol INH(or & Nicu Only) 2 puff IH QID PRN 30 Days #1 device 02/26/18 Unknown Rx [Proair] Budesonide/Formoterol Fumarate 10.2 gm IH BID 30 Days #1 02/26/18 Unknown Rx [Symbicort 160-4.5 Mcg Inhaler] hfa.aer.ad Insulin NPH/Regular [NovoLIN 70/30] 25 unit SUB-Q BIDDIAB 30 Days 02/26/18 Unknown Rx units Insulin Regular, Human [HumuLIN R] See Protocol SUB-Q ACHS 30 Days 02/26/18 Unknown Rx units amLODIPine 10 mg PO DAILY #30 tab 02/26/18 Unknown Rx levoFLOXacin [Levaquin TAB] 750 mg PO Q24HR #4 tablet 02/26/18 Unknown Rx predniSONE [Prednisone] 50 mg PO QAC #5 tablet 02/26/18 Unknown Rx Active Meds: Active Medications Acetaminophen (Tylenol) 650 mg PO Q4H PRN PRN Reason: Pain MILD(1-3)/Fever >100.5/SELF Dextrose (D50w (25gm) Syringe) 50 ml IV Q30MIN PRN; Protocol PRN Reason: Hypoglycemia Enoxaparin Sodium (Enoxaparin) 40 mg SUB-Q QDAY@1000 [facility] Last Admin: 03/18/20 10:08 Dose: 40 mg Documented by: Sodium Chloride (Nacl 0.9% 1000 Ml) 1,000 mls @ 75 mls/hr IV DIRECT [facility] Last Admin: 03/18/20 09:01 Dose: 75 mls/hr Documented by: Cefepime HCl (Cefepime/Ns 2 Gm/100 Ml) 2 gm in 100 mls @ 200 mls/hr IV Q12HR [facility] Last Admin: 03/18/20 10:01 Dose: 200 mls/hr Documented by: Insulin Human Lispro (Humalog) 0 unit SUB-Q ACHS [facility]; Protocol Last Admin: 03/18/20 13:46 Dose: 3 unit Documented by: Ondansetron HCl (Zofran) 4 mg IV Q8H PRN PRN Reason: Nausea And Vomiting Oxycodone/Acetaminophen (Percocet 5/325) 1 tab PO Q6H PRN PRN Reason: Pain, Moderate (4-6) Last Admin: 03/18/20 13:44 Dose: 1 tab Documented by: Sodium Chloride (Sodium Chloride Flush Syringe 10 Ml) 10 ml IV BID [facility] Last Admin: 03/18/20 10:06 Dose: 10 ml Documented by: Sodium Chloride (Sodium Chloride Flush Syringe 10 Ml) 10 ml IV PRN PRN PRN Reason: LINE FLUSH Physical Examination - Physical Exam Narrative exam: General appearance: Alert in mild resp distress obese Eyes: anicteric sclerae, moist conjunctivae; no lid-lag; PERRLA HENT: Atraumatic; oropharynx clear Lungs: Cdiminished bs angelica CV: RRR no murmur Abdomen: distended tense non tender Extremities: no edema, no cyanosis Genitals: right scrotum with edema, tenderness and erythema, +graham in place Skin: No rash. Psych: no agitated Neuro: alert and oriented x 3. Moving all extermities - Constitutional Vitals: Vital Signs Temp Pulse Resp BP Pulse Ox 99.0 F 102 H 20 96/47 96 03/18/20 06:00 03/18/20 06:00 03/18/20 13:44 03/18/20 06:00 03/18/20 12:15 Temperature -Last 24 Hours Temperature 99.0 F Temperature 99.1 F Temperature 99.1 F Results - Labs CBC & Chem 7: 03/18/20 09:04 03/18/20 09:04 Labs: Abnormal lab results 03/17/20 03/17/20 03/17/20 Range/Units 22:20 22:20 22:20 WBC 22.0 H (4.5-11.0) K/mm3 Hgb 11.5 L (11.8-15.2) gm/dl Hct 35.0 L (35.5-45.6) % MCH (28-32) pg RDW 15.4 H (13.2-15.2) % Seg Neuts % (Manual) 88.0 H (40.0-70.0) % Lymphocytes % (Manual) 7.0 L (13.4-35.0) % Monocytes % (Manual) (0.0-7.3) % Basophils % (Manual) (0.0-1.8) % Seg Neutrophils # Man 19.4 H (1.8-7.7) K/mm3 Monocytes # (Manual) 1.1 H (0.0-0.8) K/mm3 Basophils # (Manual) (0.0-0.1) K/mm3 INR 1.17 H (0.87-1.13) D-Dimer (0-234) ng/mlDDU Sodium 134 L (137-145) mmol/L Chloride 89.7 L (98-107) mmol/L Carbon Dioxide 31 H (22-30) mmol/L BUN 24 H (9-20) mg/dL Glucose 160 H (75-100) mg/dL POC Glucose (70-105) Ferritin (13.0-400.0) ng/mL Lactate Dehydrogenase (91-180) units/L C-Reactive Protein (0.00-1.30) mg/dL NT-Pro-B Natriuret Pep (0-900) pg/mL Albumin (3.9-5) g/dL Urine WBC (Auto) (0.0-6.0) /HPF 03/17/20 03/17/20 03/18/20 Range/Units 22:20 23:02 03:27 WBC (4.5-11.0) K/mm3 Hgb (11.8-15.2) gm/dl Hct (35.5-45.6) % MCH (28-32) pg RDW (13.2-15.2) % Seg Neuts % (Manual) (40.0-70.0) % Lymphocytes % (Manual) (13.4-35.0) % Monocytes % (Manual) (0.0-7.3) % Basophils % (Manual) (0.0-1.8) % Seg Neutrophils # Man (1.8-7.7) K/mm3 Monocytes # (Manual) (0.0-0.8) K/mm3 Basophils # (Manual) (0.0-0.1) K/mm3 INR (0.87-1.13) D-Dimer 701.67 H (0-234) ng/mlDDU Sodium (137-145) mmol/L Chloride (98-107) mmol/L Carbon Dioxide (22-30) mmol/L BUN (9-20) mg/dL Glucose (75-100) mg/dL POC Glucose (70-105) Ferritin (13.0-400.0) ng/mL Lactate Dehydrogenase (91-180) units/L C-Reactive Protein (0.00-1.30) mg/dL NT-Pro-B Natriuret Pep 1041 H (0-900) pg/mL Albumin 3.4 L (3.9-5) g/dL Urine WBC (Auto) > 182.0 H (0.0-6.0) /HPF 03/18/20 03/18/20 03/18/20 Range/Units 03:27 03:27 09:04 WBC 21.2 H (4.5-11.0) K/mm3 Hgb 11.4 L (11.8-15.2) gm/dl Hct (35.5-45.6) % MCH 27 L (28-32) pg RDW 15.8 H (13.2-15.2) % Seg Neuts % (Manual) 83.0 H (40.0-70.0) % Lymphocytes % (Manual) 7.0 L (13.4-35.0) % Monocytes % (Manual) 8.0 H (0.0-7.3) % Basophils % (Manual) 2.0 H (0.0-1.8) % Seg Neutrophils # Man 17.6 H (1.8-7.7) K/mm3 Monocytes # (Manual) 1.7 H (0.0-0.8) K/mm3 Basophils # (Manual) 0.4 H (0.0-0.1) K/mm3 INR (0.87-1.13) D-Dimer (0-234) ng/mlDDU Sodium (137-145) mmol/L Chloride (98-107) mmol/L Carbon Dioxide (22-30) mmol/L BUN (9-20) mg/dL Glucose 181 H (75-100) mg/dL POC Glucose (70-105) Ferritin 405.9 H (13.0-400.0) ng/mL Lactate Dehydrogenase 352 H (91-180) units/L C-Reactive Protein 26.60 H (0.00-1.30) mg/dL NT-Pro-B Natriuret Pep (0-900) pg/mL Albumin (3.9-5) g/dL Urine WBC (Auto) (0.0-6.0) /HPF 03/18/20 03/18/20 03/18/20 Range/Units 09:04 09:09 11:59 WBC (4.5-11.0) K/mm3 Hgb (11.8-15.2) gm/dl Hct (35.5-45.6) % MCH (28-32) pg RDW (13.2-15.2) % Seg Neuts % (Manual) (40.0-70.0) % Lymphocytes % (Manual) (13.4-35.0) % Monocytes % (Manual) (0.0-7.3) % Basophils % (Manual) (0.0-1.8) % Seg Neutrophils # Man (1.8-7.7) K/mm3 Monocytes # (Manual) (0.0-0.8) K/mm3 Basophils # (Manual) (0.0-0.1) K/mm3 INR (0.87-1.13) D-Dimer (0-234) ng/mlDDU Sodium 132 L (137-145) mmol/L Chloride 90.4 L (98-107) mmol/L Carbon Dioxide (22-30) mmol/L BUN 28 H (9-20) mg/dL Glucose 193 H (75-100) mg/dL POC Glucose 194 H 229 H (70-105) Ferritin (13.0-400.0) ng/mL Lactate Dehydrogenase (91-180) units/L C-Reactive Protein (0.00-1.30) mg/dL NT-Pro-B Natriuret Pep (0-900) pg/mL Albumin (3.9-5) g/dL Urine WBC (Auto) (0.0-6.0) /HPF Assessment and Plan Cultures: Blood culture 03/17/2020 no growth so far. COVID negative Assessment: 74 y/o male with a history of hypertension, diabetes, BPH, COPD, mordid obesity, admitted on 03/17/2020 due to 2-day history of right testicle edema, pain and erythema associated with 24 hour-history of inability to urinate: #Severe sepsis: present on admission with tachycardia, hypotension, leukocytosis, MILI, likely due to UTI +/- right testicular edema/pain +/- pneumonia. Very high procal 8.7. #Right testicular edema/erythema/pain: ? unclear etiology. US with moderate hydrocele. Hydrocele are usually painless unless infected. Should r/o torsion vs forniers #Complicated UTI with urinary retention: s/p graham in the ED #Presumed pneumonia: ? CAP. COVID negative. Doubt COVID. #Elevated Ddimer ? given tachycardia and hypoxemia ? PE #Acute hypoxemic respiratory failure: unclear ?pneumonia ? PE #?MILI: creat 1.4, renally adjusted abx . Recommendations: Urology consult r/o torsion vs forniers Agree with CTA r/o PE f/u blood and urine culture continue cefepime 2 gm IV q 12h add metronidazole 500 mg iv q8 hour add vancomycin with PK consult Will follow. Heather Bauer MD Infectious Diseases [employer] [facility] M [phone]
--- NOTE | 2020-03-18 16:33 | Event Note ---
Date: 03/18/20 Advised today that the patient desaturated requiring high flow oxygen. COVID testing reviewed is negative. Awaiting urology evaluation for hydrocele noted. Will transfer to [facility] continue high flow oxygen will obtain pulmonary evaluation Doppler of the lower extremity did not reveal any DVT. Will likely push for a CT angiogram if continued worsening respiratory status.
[2020-03-18] MEDS ORDERED: VANCOMYCIN/NS 1 GM/250 ML 1 GM/250 ML BAG IV SCH (21:00)
[2020-03-18] MEDS ORDERED: VANCOMYCIN 2,000 MG in SODIUM CHLORIDE 0.9% 500 ML 500 ML IV SCH (21:30)
[2020-03-18] MEDS ORDERED: VANCOMYCIN PHARMACY TO DOSE IV SCH (22:00)
[2020-03-18] MEDS: metroNIDAZOLE/NS 500 MG/100 ML 500 MG/100 ML BAG IV SCH (23:49)
[2020-03-19] MEDS: oxyCODONE /ACETAMINOPHEN 5-325MG TAB PO PRN ×2 (01:56→13:01)
[2020-03-19 06:02] LABS: Hematocrit 31.9 % (35.5-45.6); Hemoglobin 10.1 gm/dl (11.8-15.2); Mean Corpuscular HGB Conc 32 % (32-34); Mean Corpuscular Volume 86 fl (84-94); Platelet Count 213 K/mm3 (140-440); Red Blood Count 3.69 M/mm3 (3.65-5.03); Red Cell Distribution Width 15.6 % (13.2-15.2)
[2020-03-19 06:22] LABS: BUN/Creatinine Ratio 22; Blood Urea Nitrogen 24 mg/dL (9-20); Calcium 8.6 mg/dL (8.4-10.2); Hemolysis Index 0
[2020-03-19] MEDS: INSULIN LISPRO 100 UNIT/ML SUB-Q SCH ×5 (08:26→22:52)
[2020-03-19] MEDS: ENOXAPARIN 40 MG/0.4 ML INJ SUB-Q SCH (09:16)
[2020-03-19] MEDS: CEFEPIME/NS 2 GM/100 ML 2 GM/100 ML BAG IV SCH ×2 (09:16→22:21)
--- NOTE | 2020-03-19 09:19 | Consultation ---
History of Present Illness - Reason for Consult Consult date: 03/19/20 - History of Present Illness Patient is 74 years old male with history of hypertension, diabetes, BPH, COPD and asthma. Patient brought to the emergency room via EMS from home for evaluation of urine retention and right testicular swelling started today. Patient stated that he had similar episode in January where he had a Graham catheter for a week. Patient also noticed to have a shortness of breath. Patient stated that he is having bilateral lower extremity swelling. Patient denied any fever or chills. No nausea or vomiting. No chest pain. kathryn---rt hydrocele graham draining [place] urine baseball size rt testes----no skin discoloration Retention in a 74 yr old---recommend home with graham & flomax 1qd when stable RT hydrocele & inflammation ----does not appear to be Yashira's gangrene needs better control of Diabetes Medications and Allergies Allergies Allergy/AdvReac Type Severity Reaction Status Date / Time No Known Allergies Allergy Unverified 02/23/18 19:18 Home Medications Medication Instructions Recorded Confirmed Last Taken Type Albuterol INH(or & Nicu Only) 2 puff IH QID PRN 30 Days #1 device 02/26/18 U nknown Rx [Proair] Budesonide/Formoterol Fumarate 10.2 gm IH BID 30 Days #1 02/26/18 Unknown Rx [Symbicort 160-4.5 Mcg Inhaler] hfa.aer.ad Insulin NPH/Regular [NovoLIN 70/30] 25 unit SUB-Q BIDDIAB 30 Days 02/26/18 Unknown Rx units Insulin Regular, Human [HumuLIN R] See Protocol SUB-Q ACHS 30 Days 02/26/18 Unknown Rx units amLODIPine 10 mg PO DAILY #30 tab 02/26/18 Unknown Rx levoFLOXacin [Levaquin TAB] 750 mg PO Q24HR #4 tablet 02/26/18 Unknown Rx predniSONE [Prednisone] 50 mg PO QAC #5 tablet 02/26/18 Unknown Rx Active Meds: Active Medications Acetaminophen (Tylenol) 650 mg PO Q4H PRN PRN Reason: Pain MILD(1-3)/Fever >100.5/SELF Dextrose (D50w (25gm) Syringe) 50 ml IV Q30MIN PRN; Protocol PRN Reason: Hypoglycemia Enoxaparin Sodium (Enoxaparin) 40 mg SUB-Q QDAY@1000 [facility] Last Admin: 03/18/20 10:08 Dose: 40 mg Documented by: Sodium Chloride (Nacl 0.9% 1000 Ml) 1,000 mls @ 75 mls/hr IV DIRECT [facility] Last Admin: 03/18/20 23:50 Dose: 75 mls/hr Documented by: Cefepime HCl (Cefepime/Ns 2 Gm/100 Ml) 2 gm in 100 mls @ 200 mls/hr IV Q12HR [facility] Last Admin: 03/18/20 23:49 Dose: 200 mls/hr Documented by: Metronidazole (Flagyl 500 Mg/100 Ml) 500 mg in 100 mls @ 100 mls/hr IV Q8HR [facility]; Protocol Last Admin: 03/18/20 23:49 Dose: 100 mls/hr Documented by: Vancomycin HCl 1,500 mg/ (Sodium Chloride) 530 mls @ 333.333 mls/hr IV Q12H [facility] Insulin Human Lispro (Humalog) 0 unit SUB-Q ACHS [facility]; Protocol Last Admin: 03/19/20 08:26 Dose: Not Given Documented by: Morphine Sulfate (Morphine) 2 mg IV Q4H PRN PRN Reason: Pain, Moderate (4-6) Ondansetron HCl (Zofran) 4 mg IV Q8H PRN PRN Reason: Nausea And Vomiting Oxycodone/Acetaminophen (Percocet 5/325) 1 tab PO Q6H PRN PRN Reason: Pain, Moderate (4-6) Last Admin: 03/19/20 01:56 Dose: 1 tab Documented by: Sodium Chloride (Sodium Chloride Flush Syringe 10 Ml) 10 ml IV BID [facility] Last Admin: 03/18/20 10:06 Dose: 10 ml Documented by: Sodium Chloride (Sodium Chloride Flush Syringe 10 Ml) 10 ml IV PRN PRN PRN Reason: LINE FLUSH Exam - Constitutional Vitals: Temp Pulse Resp BP Pulse Ox 100 F H 91 H 22 96/47 95 03/19/20 03:51 03/19/20 04:00 03/19/20 04:00 03/18/20 06:00 03/19/20 04:00 Results - Labs CBC & Chem 7: 03/19/20 04:04 03/19/20 04:04 Labs: Abnormal lab results 03/18/20 03/18/20 03/18/20 Range/Units 09:04 09:04 09:09 WBC 21.2 H (4.5-11.0) K/mm3 Hgb 11.4 L (11.8-15.2) gm/dl Hct (35.5-45.6) % MCH 27 L (28-32) pg RDW 15.8 H (13.2-15.2) % Seg Neuts % (Manual) 83.0 H (40.0-70.0) % Lymphocytes % (Manual) 7.0 L (13.4-35.0) % Monocytes % (Manual) 8.0 H (0.0-7.3) % Basophils % (Manual) 2.0 H (0.0-1.8) % Seg Neutrophils # Man 17.6 H (1.8-7.7) K/mm3 Monocytes # (Manual) 1.7 H (0.0-0.8) K/mm3 Basophils # (Manual) 0.4 H (0.0-0.1) K/mm3 Sodium 132 L (137-145) mmol/L Chloride 90.4 L (98-107) mmol/L BUN 28 H (9-20) mg/dL Glucose 193 H (75-100) mg/dL POC Glucose 194 H (70-105) 03/18/20 03/18/20 03/19/20 Range/Units 11:59 17:18 00:30 WBC (4.5-11.0) K/mm3 Hgb (11.8-15.2) gm/dl Hct (35.5-45.6) % MCH (28-32) pg RDW (13.2-15.2) % Seg Neuts % (Manual) (40.0-70.0) % Lymphocytes % (Manual) (13.4-35.0) % Monocytes % (Manual) (0.0-7.3) % Basophils % (Manual) (0.0-1.8) % Seg Neutrophils # Man (1.8-7.7) K/mm3 Monocytes # (Manual) (0.0-0.8) K/mm3 Basophils # (Manual) (0.0-0.1) K/mm3 Sodium (137-145) mmol/L Chloride (98-107) mmol/L BUN (9-20) mg/dL Glucose (75-100) mg/dL POC Glucose 229 H 182 H 175 H (70-105) 03/19/20 03/19/20 03/19/20 Range/Units 04:04 04:04 08:42 WBC 16.5 H (4.5-11.0) K/mm3 Hgb 10.1 L (11.8-15.2) gm/dl Hct 31.9 L (35.5-45.6) % MCH 27 L (28-32) pg RDW 15.6 H (13.2-15.2) % Seg Neuts % (Manual) (40.0-70.0) % Lymphocytes % (Manual) (13.4-35.0) % Monocytes % (Manual) (0.0-7.3) % Basophils % (Manual) (0.0-1.8) % Seg Neutrophils # Man (1.8-7.7) K/mm3 Monocytes # (Manual) (0.0-0.8) K/mm3 Basophils # (Manual) (0.0-0.1) K/mm3 Sodium 134 L (137-145) mmol/L Chloride 92.0 L (98-107) mmol/L BUN 24 H (9-20) mg/dL Glucose 245 H (75-100) mg/dL POC Glucose 226 H (70-105)
--- NOTE | 2020-03-19 09:25 | Progress Note ---
Assessment and Plan Cultures: Blood culture 03/17/2020 no growth so far. COVID negative Assessment: 74 y/o male with a history of hypertension, diabetes, BPH, COPD, mordid obesity, admitted on 03/17/2020 due to 2-day history of right testicle edema, pain and erythema associated with 24 hour-history of inability to u rinate: #Severe sepsis: leukocytosis better, likely due to UTI +/- right testicular edema/pain +/- pneumonia. Very high procal 8.7. #Right testicular edema/erythema/pain: ? unclear etiology. US with moderate hydrocele. Hydroceles are usually painless unless infected. Should r/o torsion vs forniers. Evaluated by likely hydrocel, no Fornier #Complicated UTI with urinary retention: s/p graham in the ED #Presumed pneumonia: ? CAP. COVID negative. Doubt COVID. #Elevated Ddimer ? given tachycardia and hypoxemia ? PE #Acute hypoxemic respiratory failure: unclear ?pneumonia ? PE #?MILI: creat 1.4, renally adjusted abx, now resolved . Recommendations: Close eval of testicular pain Obtain CTA r/o PE f/u blood and urine culture continue cefepime 2 gm IV q 12h continue metronidazole 500 mg iv q8 hour continue vancomycin with PK consult Will follow. Heather Bauer MD Infectious Diseases Project Management Intern [facility], [place] [facility] M [phone] O [phone] Subjective Date of service: 03/19/20 Principal diagnosis: sepsis Interval history: Now on HFO2 c/o severe right testicular pain 10 of 10, tmax 100. Objective - Exam Narrative Exam: General appearance: Alert in mild resp distress obese on HFO2 Eyes: anicteric sclerae, moist conjunctivae; no lid-lag; PERRLA HENT: Atraumatic; oropharynx clear Lungs: Cdiminished bs angelica CV: RRR no murmur Abdomen: distended tense non tender Extremities: no edema, no cyanosis Genitals: right scrotum with edema, tenderness and erythema, +graham in place Skin: No rash. Psych: anxious Neuro: alert and oriented x 3. Moving all extermities - Constitutional Vitals: Vital Signs Temp Pulse Resp BP Pulse Ox 100 F H 91 H 22 96/47 95 03/19/20 03:51 03/19/20 04:00 03/19/20 04:00 03/18/20 06:00 03/19/20 04:00 Temperature -Last 24 Hours Temperature 100 F Temperature 98.3 F Temperature 98.8 F - Labs CBC & Chem 7: 03/19/20 04:04 03/19/20 04:04 Labs: Abnormal lab results 03/18/20 03/18/20 03/18/20 Range/Units 09:04 09:04 11:59 WBC 21.2 H (4.5-11.0) K/mm3 Hgb 11.4 L (11.8-15.2) gm/dl Hct (35.5-45.6) % MCH 27 L (28-32) pg RDW 15.8 H (13.2-15.2) % Seg Neuts % (Manual) 83.0 H (40.0-70.0) % Lymphocytes % (Manual) 7.0 L (13.4-35.0) % Monocytes % (Manual) 8.0 H (0.0-7.3) % Basophils % (Manual) 2.0 H (0.0-1.8) % Seg Neutrophils # Man 17.6 H (1.8-7.7) K/mm3 Monocytes # (Manual) 1.7 H (0.0-0.8) K/mm3 Basophils # (Manual) 0.4 H (0.0-0.1) K/mm3 Sodium 132 L (137-145) mmol/L Chloride 90.4 L (98-107) mmol/L BUN 28 H (9-20) mg/dL Glucose 193 H (75-100) mg/dL POC Glucose 229 H (70-105) 03/18/20 03/19/20 03/19/20 Range/Units 17:18 00:30 04:04 WBC 16.5 H (4.5-11.0) K/mm3 Hgb 10.1 L (11.8-15.2) gm/dl Hct 31.9 L (35.5-45.6) % MCH 27 L (28-32) pg RDW 15.6 H (13.2-15.2) % Seg Neuts % (Manual) (40.0-70.0) % Lymphocytes % (Manual) (13.4-35.0) % Monocytes % (Manual) (0.0-7.3) % Basophils % (Manual) (0.0-1.8) % Seg Neutrophils # Man (1.8-7.7) K/mm3 Monocytes # (Manual) (0.0-0.8) K/mm3 Basophils # (Manual) (0.0-0.1) K/mm3 Sodium (137-145) mmol/L Chloride (98-107) mmol/L BUN (9-20) mg/dL Glucose (75-100) mg/dL POC Glucose 182 H 175 H (70-105) 03/19/20 03/19/20 Range/Units 04:04 08:42 WBC (4.5-11.0) K/mm3 Hgb (11.8-15.2) gm/dl Hct (35.5-45.6) % MCH (28-32) pg RDW (13.2-15.2) % Seg Neuts % (Manual) (40.0-70.0) % Lymphocytes % (Manual) (13.4-35.0) % Monocytes % (Manual) (0.0-7.3) % Basophils % (Manual) (0.0-1.8) % Seg Neutrophils # Man (1.8-7.7) K/mm3 Monocytes # (Manual) (0.0-0.8) K/mm3 Basophils # (Manual) (0.0-0.1) K/mm3 Sodium 134 L (137-145) mmol/L Chloride 92.0 L (98-107) mmol/L BUN 24 H (9-20) mg/dL Glucose 245 H (75-100) mg/dL POC Glucose 226 H (70-105)
--- NOTE | 2020-03-19 10:46 | Consultation ---
History of Present Illness Consult date: 03/19/20 Requesting physician: AWILDA DORADO Reason for consult: asthma, COPD, hypoxemia History of present illness: 74 y/o, obese male with known COPD and JOHN admitted with sepsis and testicular pain. NO hydro seen on CT but does have an enlarged testicle. Subsequently has developed worsening respiratory failure and is now on HFNC at 30 and 35%. Very tachypnic at rest and appears uncomfortable. Sats are in the high 90's. ID and IMS are concerned about PE. Patient not on any therapy for COPD here in house and per patient takes prednisone daily but cannot tell me the dose. Past History Past Medical History: COPD, diabetes, hypertension, other (JOHN) Social history: other (Main care provided by [facility]) Family history: no significant family history Medications and Allergies Allergies Allergy/AdvReac Type Severity Reaction Status Date / Time No Known Allergies Allergy Unverified 02/23/18 19:18 Home Medications Medication Instructions Recorded Confirmed Last Taken Type Albuterol INH(or & Nicu Only) 2 puff IH QID PRN 30 Days #1 device 02/26/18 Unknown Rx [Proair] Budesonide/Formoterol Fumarate 10.2 gm IH BID 30 Days #1 02/26/18 Unknown Rx [Symbicort 160-4.5 Mcg Inhaler] hfa.[email or web address].[email or web address] Insulin NPH/Regular [NovoLIN 70/30] 25 unit SUB-Q BIDDIAB 30 Days 02/26/18 Unknown Rx units Insulin Regular, Human [HumuLIN R] See Protocol SUB-Q ACHS 30 Days 02/26/18 Unknown Rx units amLODIPine 10 mg PO DAILY #30 tab 02/26/18 Unknown Rx levoFLOXacin [Levaquin TAB] 750 mg PO Q24HR #4 tablet 02/26/18 Unknown Rx predniSONE [Prednisone] 50 mg PO QAC #5 tablet 02/26/18 Unknown Rx Active Meds: Active Medications Acetaminophen (Tylenol) 650 mg PO Q4H PRN PRN Reason: Pain MILD(1-3)/Fever >100.5/SELF Arformoterol Tartrate (Brovana Nebu) 15 mcg IH Q12HRT EMBER Budesonide (Pulmicort) 0.5 mg IH Q12HRT EMBER Dextrose (D50w (25gm) Syringe) 50 ml IV Q30MIN PRN; Protocol PRN Reason: Hypoglycemia Enoxaparin Sodium (Enoxaparin) 40 mg SUB-Q QDAY@1000 EMBER Last Admin: 03/19/20 09:16 Dose: 40 mg Documented by: Sodium Chloride (Nacl 0.9% 1000 Ml) 1,000 mls @ 75 mls/hr IV DIRECT [facility] Last Admin: 03/18/20 23:50 Dose: 75 mls/hr Documented by: Cefepime HCl (Cefepime/Ns 2 Gm/100 Ml) 2 gm in 100 mls @ 200 mls/hr IV Q12HR [facility] Last Admin: 03/19/20 09:16 Dose: 200 mls/hr Documented by: Metronidazole (Flagyl 500 Mg/100 Ml) 500 mg in 100 mls @ 100 mls/hr IV Q8HR [facility]; Protocol Last Admin: 03/18/20 23:49 Dose: 100 mls/hr Documented by: Vancomycin HCl 1,500 mg/ (Sodium Chloride) 530 mls @ 333.333 mls/hr IV Q12H [facility] Insulin Human Lispro (Humalog) 0 unit SUB-Q ACHS [facility]; Protocol Last Admin: 03/19/20 09:16 Dose: 3 unit Documented by: Morphine Sulfate (Morphine) 2 mg IV Q4H PRN PRN Reason: Pain, Moderate (4-6) Ondansetron HCl (Zofran) 4 mg IV Q8H PRN PRN Reason: Nausea And Vomiting Oxycodone/Acetaminophen (Percocet 5/325) 1 tab PO Q6H PRN PRN Reason: Pain, Moderate (4-6) Last Admin: 03/19/20 01:56 Dose: 1 tab Documented by: Sodium Chloride (Sodium Chloride Flush Syringe 10 Ml) 10 ml IV BID [facility] Last Admin: 03/19/20 09:17 Dose: 10 ml Documented by: Sodium Chloride (Sodium Chloride Flush Syringe 10 Ml) 10 ml IV PRN PRN PRN Reason: LINE FLUSH Review of Systems Constitutional: other (pain and enlarged testicle) Physical Examination Vital signs: Vital Signs Temp Pulse Resp BP Pulse Ox 99.1 F 106 H 24 105/59 99 03/17/20 22:15 03/17/20 22:15 03/17/20 22:15 03/17/20 22:15 03/17/20 22:15 General appearance: appears uncomfortable Eyes: non-icteric ENT: oropharynx moist Neck: supple, no JVD Effort: mildly labored Ascultation: Bilateral: diminished breath sounds, wheezes Percussion: Bilateral: not dull Tactile fremitus: Bilateral: normal Cardiovascular: regular rate and rhythm Gastrointestinal: normoactive bowel sounds, soft Extremities: no edema, pink and warm normal mental status, non-focal exam mood appropriate Results - Laboratory Findings CBC and BMP: 03/19/20 04:04 03/19/20 04:04 PT/INR, D-dimer PT 14.7 Sec. (12.2-14.9) 03/17/20 22:20 INR 1.17 (0.87-1.13) H 03/17/20 22:20 D-Dimer 701.67 ng/mlDDU (0-234) H 03/18/20 03:27 Abnormal lab findings: Abnormal Labs 03/17/20 03/17/20 03/17/20 22:20 22:20 22:20 WBC 22.0 H Hgb 11.5 L Hct 35.0 L MCH RDW 15.4 H Seg Neuts % (Manual) 88.0 H Lymphocytes % (Manual) 7.0 L Monocytes % (Manual) Basophils % (Manual) Seg Neutrophils # Man 19.4 H Monocytes # (Manual) 1.1 H Basophils # (Manual) INR 1.17 H D-Dimer Sodium 134 L Chloride 89.7 L Carbon Dioxide 31 H BUN 24 H Glucose 160 H POC Glucose Ferritin Lactate Dehydrogenase C-Reactive Protein NT-Pro-B Natriuret Pep Albumin Urine WBC (Auto) 03/17/20 03/17/20 03/18/20 22:20 23:02 03:27 WBC Hgb Hct MCH RDW Seg Neuts % (Manual) Lymphocytes % (Manual) Monocytes % (Manual) Basophils % (Manual) Seg Neutrophils # Man Monocytes # (Manual) Basophils # (Manual) INR D-Dimer 701.67 H Sodium Chloride Carbon Dioxide BUN Glucose POC Glucose Ferritin Lactate Dehydrogenase C-Reactive Protein NT-Pro-B Natriuret Pep 1041 H Albumin 3.4 L Urine WBC (Auto) > 182.0 H 03/18/20 03/18/20 03/18/20 03:27 03:27 09:04 WBC 21.2 H Hgb 11.4 L Hct MCH 27 L RDW 15.8 H Seg Neuts % (Manual) 83.0 H Lymphocytes % (Manual) 7.0 L Monocytes % (Manual) 8.0 H Basophils % (Manual) 2.0 H Seg Neutrophils # Man 17.6 H Monocytes # (Manual) 1.7 H Basophils # (Manual) 0.4 H INR D-Dimer Sodium Chloride Carbon Dioxide BUN Glucose 181 H POC Glucose Ferritin 405.9 H Lactate Dehydrogenase 352 H C-Reactive Protein 26.60 H NT-Pro-B Natriuret Pep Albumin Urine WBC (Auto) 03/18/20 03/18/20 03/18/20 09:04 09:09 11:59 WBC Hgb Hct MCH RDW Seg Neuts % (Manual) Lymphocytes % (Manual) Monocytes % (Manual) Basophils % (Manual) Seg Neutrophils # Man Monocytes # (Manual) Basophils # (Manual) INR D-Dimer Sodium 132 L Chloride 90.4 L Carbon Dioxide BUN 28 H Glucose 193 H POC Glucose 194 H 229 H Ferritin Lactate Dehydrogenase C-Reactive Protein NT-Pro-B Natriuret Pep Albumin Urine WBC (Auto) 03/18/20 03/19/20 03/19/20 17:18 00:30 04:04 WBC 16.5 H Hgb 10.1 L Hct 31.9 L MCH 27 L RDW 15.6 H Seg Neuts % (Manual) Lymphocytes % (Manual) Monocytes % (Manual) Basophils % (Manual) Seg Neutrophils # Man Monocytes # (Manual) Basophils # (Manual) INR D-Dimer Sodium Chloride Carbon Dioxide BUN Glucose POC Glucose 182 H 175 H Ferritin Lactate Dehydrogenase C-Reactive Protein NT-Pro-B Natriuret Pep Albumin Urine WBC (Auto) 03/19/20 03/19/20 04:04 08:42 WBC Hgb Hct MCH RDW Seg Neuts % (Manual) Lymphocytes % (Manual) Monocytes % (Manual) Basophils % (Manual) Seg Neutrophils # Man Monocytes # (Manual) Basophils # (Manual) INR D-Dimer Sodium 134 L Chloride 92.0 L Carbon Dioxide BUN 24 H Glucose 245 H POC Glucose 226 H Ferritin Lactate Dehydrogenase C-Reactive Protein NT-Pro-B Natriuret Pep Albumin Urine WBC (Auto) - Diagnostic Findings Chest x-ray: image reviewed (Clear CXR) Assessment and Plan 74 y/o male with COPD exacerbation and acute respiratory failure secondary to sepsis from testicular issues. 1. ordered BID Pulmicort and Brovan therapy 2. Will order PRN neb treatments 3. Will start on IV steroids 4. Patient unable to tolerate full facemask bipap 5. Continue graham and montior urine output.
[2020-03-19] MEDS ORDERED: methylPREDNISolone Sod Succinate 40 MG/1 ML INJ IV ONE (11:00)
[2020-03-19] MEDS: ARFORMOTEROL 15 MCG/2 ML NEBU IH SCH ×2 (11:42→19:56)
[2020-03-19] MEDS: BUDESONIDE 0.5 MG/2 ML NEBU IH SCH ×2 (11:42→19:56)
[2020-03-19] MEDS: IPRATROPIUM 0.02% NEBU 2.5 ML IH SCH ×2 (11:42→19:59)
[2020-03-19] MEDS ORDERED: methylPREDNISolone Sod Succinate 125 MG/2 ML INJ IV SCH (12:00)
[2020-03-19] MEDS: metroNIDAZOLE/NS 500 MG/100 ML 500 MG/100 ML BAG IV SCH ×3 (12:18→22:22)
[2020-03-19] MEDS ORDERED: methylPREDNISolone Sod Succinate 40 MG/1 ML INJ ONE (13:03)
[2020-03-19] MEDS: VANCOMYCIN 1,500 MG in SODIUM CHLORIDE 0.9% 500 ML 500 ML IV SCH (13:36)
--- NOTE | 2020-03-19 14:06 | Cat Scan Report ---
CT ABDOMEN AND PELVIS WITH CONTRAST HISTORY: scrotal pain COMPARISON: Testicular ultrasound dated 03/17/2020. TECHNIQUE: Axial CT images were obtained through the abdomen and pelvis following 100 cc of Omnipaque 300 IV contrast. Sagittal and coronal reformatted images. All CT scans at this location are performe d using CT dose reduction for ALARA by means of automated exposure control. FINDINGS: CT ABDOMEN: Lung Bases: Clear. Liver: Moderate diffuse fatty infiltration throughout the liver is noted. No focal mass or enlargemen t. Biliary: Cholecystectomy. No biliary dilatation. Spleen: No significant abnormality. Unenlarged. Pancreas: No significant abnormality. Adrenals: No significant abnormality. Kidneys: No significant abnormality. Lymphatics: No lymphadenopathy. Vasculature: Mild diffuse aortic calcifications are identified. No stenosis or aneurysm. Bowel/Peritoneum: No significant abnormality. No free air. No free fluid. CT PELVIS: : The bladder is decompressed with a Haskins catheter. No gross abnormality. The distal ureters and p rostate gland are within normal limits. There is diffuse scrotal skin edema of uncertain etiology. Th is may represent a cellulitis. There is no evidence for soft tissue gas or peripherally enhancing abs cess. Small to medium right hydrocele is suggested. Osseous Structures: Moderate lumbar spondylosis. No fracture or suspicious bony lesion. Additional Findings: None IMPRESSION: Nonspecific scrotal skin thickening suggestive of a cellulitis. No discrete abscess or soft tissue ga s. Small right hydrocele. Hepatic steatosis. Cholecystectomy. Signer Name: Dyllan Girard Jr, MD Signed: 03/19/2020 2:02 PM Workstation Name: [id number]
[2020-03-19] MEDS: INSULIN NPH/REGULAR 70/30 INJ SUB-Q SCH (16:00)
--- NOTE | 2020-03-19 16:42 | Progress Note ---
Assessment and Plan Assessment and plan: 74-year-old man with a history of hypertension, diabetes, BPH, COPD comes emergency room for evaluation. Patient states that over the last 1 day he was unable to urinate and his right testicle was painful over the last 2 days. He denies fever, cough, chills, diarrhea, sick contact, dysuria, frequency. The patient will be admitted for urinary retention, UTI, testicular pain CTAP: Nonspecific scrotal skin thickening suggestive of a cellulitis. No discrete abscess or soft tissue gas. Small right hydrocele. Hepatic steatosis. Cholecystectomy Sepsis/UTI/SCROTAL Cellulites Continue abx ID consulted Sepsis protocol Acute Cystitis Follow urine culture continue abx Acute Hypoxemic Respiratory failure Wean off High flow oxygen Pulmonary consult Resume home meds and taper steroids as needed Urinary retention/hydrocele status post Haskins, consult urology- discussed with them Voiding trial prior to discharge Pneumonia Ruled out COVID19 ID following Monitor Cultures Diabetes Mellitus Check fingersticks, start sliding scale Hypertension Continue appropriate outpatient medications DVT prophylaxis Discussed with ID History Interval history: Patient seen and examined, reports pain in the scrotal area, still with some shortness of breath Hospitalist Physical - Physical exam Narrative exam: Gen. appearance: Patient lying in bed, mild respiratory distress HEENT: Normocephalic, atraumatic, pupils equally round and reactive to light, extraocular movement intact, and no sclericterus,. No JVD or thyromegaly or nodule,neck supple, no carotid bruit ,mucous membranes moist, no exudate or erythema Heart: S1, S2, regular rate and rhythm Lungs: Crackles, breathing comfortable Abdomen: Positive bowel sounds, nontender, nondistended, no organomegaly Extremity: no edema, cyanosis, clubbing Skin: No rash, nodules, warm, dry Neuro: Cranial nerves II through XII, speech is fluent, moves extremities, sensory intact - Constitutional Vitals: Temp Pulse Resp BP Pulse Ox 98.0 F 88 22 96/47 95 03/19/20 08:00 03/19/20 12:00 03/19/20 12:00 03/18/20 06:00 03/19/20 12:00 Results - Labs CBC & Chem 7: 03/20/20 05:47 03/20/20 05:47 Labs: Laboratory Last Values WBC 16.5 K/mm3 (4.5-11.0) H 03/19/20 04:04 RBC 3.69 M/mm3 (3.65-5.03) 03/19/20 04:04 Hgb 10.1 gm/dl (11.8-15.2) L 03/19/20 04:04 Hct 31.9 % (35.5-45.6) L 03/19/20 04:04 MCV 86 fl (84-94) 03/19/20 04:04 MCH 27 pg (28-32) L 03/19/20 04:04 MCHC 32 % (32-34) 03/19/20 04:04 RDW 15.6 % (13.2-15.2) H 03/19/20 04:04 Plt Count 213 K/mm3 (140-440) 03/19/20 04:04 Add Manual Diff Complete 03/18/20 09:04 Total Counted 100 03/18/20 09:04 Seg Neuts % (Manual) 83.0 % (40.0-70.0) H 03/18/20 09:04 Band Neutrophils % 0 % 03/18/20 09:04 Lymphocytes % (Manual) 7.0 % (13.4-35.0) L 03/18/20 09:04 Reactive Lymphs % (Man) 0 % 03/18/20 09:04 Monocytes % (Manual) 8.0 % (0.0-7.3) H 03/18/20 09:04 Eosinophils % (Manual) 0 % (0.0-4.3) 03/18/20 09:04 Basophils % (Manual) 2.0 % (0.0-1.8) H 03/18/20 09:04 Metamyelocytes % 0 % 03/18/20 09:04 Myelocytes % 0 % 03/18/20 09:04 Promyelocytes % 0 % 03/18/20 09:04 Blast Cells % 0 % 03/18/20 09:04 Nucleated RBC % Not Reportable 03/18/20 09:04 Seg Neutrophils # Man 17.6 K/mm3 (1.8-7.7) H 03/18/20 09:04 Band Neutrophils # 0.0 K/mm3 03/18/20 09:04 Lymphocytes # (Manual) 1.5 K/mm3 (1.2-5.4) 03/18/20 09:04 Abs React Lymphs (Man) 0.0 K/mm3 03/18/20 09:04 Monocytes # (Manual) 1.7 K/mm3 (0.0-0.8) H 03/18/20 09:04 Eosinophils # (Manual) 0.0 K/mm3 (0.0-0.4) 03/18/20 09:04 Basophils # (Manual) 0.4 K/mm3 (0.0-0.1) H 03/18/20 09:04 Metamyelocytes # 0.0 K/mm3 03/18/20 09:04 Myelocytes # 0.0 K/mm3 03/18/20 09:04 Promyelocytes # 0.0 K/mm3 03/18/20 09:04 Blast Cells # 0.0 K/mm3 03/18/20 09:04 WBC Morphology 1+ 03/18/20 09:04 WBC Morphology Not Reportable 03/18/20 09:04 Hypersegmented Neuts Not Reportable 03/18/20 09:04 Hyposegmented Neuts Not Reportable 03/18/20 09:04 Hypogranular Neuts Not Reportable 03/18/20 09:04 Smudge Cells Not Reportable 03/18/20 09:04 Toxic Granulation Not Reportable 03/18/20 09:04 Toxic Vacuolation Not Reportable 03/18/20 09:04 Dohle Bodies Not Reportable 03/18/20 09:04 Pelger-Huet Anomaly Not Reportable 03/18/20 09:04 Rosario Rods Not Reportable 03/18/20 09:04 Platelet Estimate Consistent w auto 03/18/20 09:04 Clumped Platelets Not Reportable 03/18/20 09:04 Plt Clumps, EDTA Not Reportable 03/18/20 09:04 Large Platelets Not Reportable 03/18/20 09:04 Giant Platelets Not Reportable 03/18/20 09:04 Platelet Satelliting Not Reportable 03/18/20 09:04 Plt Morphology Comment Not Reportable 03/18/20 09:04 RBC Morphology Normal 03/18/20 09:04 Dimorphic RBCs Not Reportable 03/18/20 09:04 Polychromasia Not Reportable 03/18/20 09:04 Hypochromasia Not Reportable 03/18/20 09:04 Poikilocytosis Not Reportable 03/18/20 09:04 Anisocytosis Not Reportable 03/18/20 09:04 Microcytosis Not Reportable 03/18/20 09:04 Macrocytosis Not Reportable 03/18/20 09:04 Spherocytes Not Reportable 03/18/20 09:04 Pappenheimer Bodies Not Reportable 03/18/20 09:04 Sickle Cells Not Reportable 03/18/20 09:04 Target Cells Not Reportable 03/18/20 09:04 Tear Drop Cells Not Reportable 03/18/20 09:04 Ovalocytes Not Reportable 03/18/20 09:04 Helmet Cells Not Reportable 03/18/20 09:04 [place] Bodies Not Reportable 03/18/20 09:04 Alba Rings Not Reportable 03/18/20 09:04 Renetta Cells Not Reportable 03/18/20 09:04 Bite Cells Not Reportable 03/18/20 09:04 Crenated Cell Not Reportable 03/18/20 09:04 Elliptocytes Not Reportable 03/18/20 09:04 Acanthocytes (Spur) Not Reportable 03/18/20 09:04 Rouleaux Not Reportable 03/18/20 09:04 Hemoglobin C Crystals Not Reportable 03/18/20 09:04 Schistocytes Not Reportable 03/18/20 09:04 Malaria parasites Not Reportable 03/18/20 09:04 Christopher Bodies Not Reportable 03/18/20 09:04 Hem Pathologist Commnt No 03/18/20 09:04 PT 14.7 Sec. (12.2-14.9) 03/17/20 22:20 INR 1.17 (0.87-1.13) H 03/17/20 22:20 APTT 25.7 Sec. (24.2-36.6) 03/17/20 22:20 D-Dimer 701.67 ng/mlDDU (0-234) H 03/18/20 03:27 Sodium 134 mmol/L (137-145) L 03/19/20 04:04 Potassium 4.2 mmol/L (3.6-5.0) 03/19/20 04:04 Chloride 92.0 mmol/L (98-107) L 03/19/20 04:04 Carbon Dioxide 30 mmol/L (22-30) 03/19/20 04:04 Anion Gap 16 mmol/L 03/19/20 04:04 BUN 24 mg/dL (9-20) H 03/19/20 04:04 Creatinine 1.1 mg/dL (0.8-1.5) 03/19/20 04:04 Estimated GFR > 60 ml/min 03/19/20 04:04 BUN/Creatinine Ratio 22 % 03/19/20 04:04 Glucose 245 mg/dL (75-100) H 03/19/20 04:04 POC Glucose 183 (70-105) H 03/19/20 15:44 Lactic Acid 1.30 mmol/L (0.7-2.0) 03/18/20 09:04 Calcium 8.6 mg/dL (8.4-10.2) 03/19/20 04:04 Ferritin 405.9 ng/mL (13.0-400.0) H 03/18/20 03:27 Total Bilirubin 0.60 mg/dL (0.1-1.2) 03/17/20 22:20 Direct Bilirubin 0.2 mg/dL (0-0.2) 03/17/20 22:20 Indirect Bilirubin 0.4 mg/dL 03/17/20 22:20 AST 34 units/L (5-40) 03/17/20 22:20 ALT 28 units/L (7-56) 03/17/20 22:20 Alkaline Phosphatase 54 units/L (35-129) 03/17/20 22:20 Lactate Dehydrogenase 352 units/L (91-180) H 03/18/20 03:27 Troponin T < 0.010 ng/mL (0.00-0.029) 03/17/20 22:20 C-Reactive Protein 26.60 mg/dL (0.00-1.30) H 03/18/20 03:27 NT-Pro-B Natriuret Pep 1041 pg/mL (0-900) H 03/17/20 22:20 Total Protein 6.7 g/dL (6.3-8.2) 03/17/20 22:20 Albumin 3.4 g/dL (3.9-5) L 03/17/20 22:20 Albumin/Globulin Ratio 1.0 % 03/17/20 22:20 Procalcitonin 8.71 ng/mL (<0.15) 03/18/20 03:27 Urine Color Yellow (Yellow) 03/17/20 23:02 Urine Turbidity Cloudy (Clear) 03/17/20 23: Urine pH 6.0 (5.0-7.0) 03/17/20 23:02 Ur Specific [place] 1.013 (1.003-1.030) 03/17/20 23:02 Urine Protein 30 mg/dl mg/dL (Negative) 03/17/20 23:02 Urine Glucose (UA) 50 mg/dL (Negative) 03/17/20 23: Urine Ketones Neg mg/dL (Negative) 03/17/20 23: Urine Blood Mod (Negative) 03/17/20 23: Urine Nitrite Neg (Negative) 03/17/20 23: Urine Bilirubin Neg (Negative) 03/17/20 23: Urine Urobilinogen < 2.0 mg/dL (<2.0) 03/17/20 23:02 Ur Leukocyte Esterase Lg (Negative) 03/17/20 23:02 Urine WBC (Auto) > 182.0 /HPF (0.0-6.0) H 03/17/20 23:02 Urine RBC (Auto) 2.0 /HPF (0.0-6.0) 03/17/20 23:02 Urine Bacteria (Auto) 2+ /HPF (Negative) 03/17/20 23:02 Urine WBC Clumps 3+ /HPF 03/17/20 23:02 Urine Mucus 2+ /HPF 03/17/20 23:02 Coronavirus (PCR) Negative (Negative) 03/18/20 Unknown Microbiology: Microbiology 03/17/20 23:18 Peripheral/Venous Blood Culture - Preliminary NO GROWTH AFTER 24 HOURS 03/17/20 23:18 Peripheral/Venous Blood Culture - Preliminary NO GROWTH AFTER 24 HOURS Haskins/IV: Voiding Method Indwelling Catheter IV Catheter Type [Right Hand] INT / Saline Lock IV Catheter Type [Right INT / Saline Lock Forearm] IV Catheter Type [Left Hand] INT / Saline Lock Active Medications - Current Medications Current Medications: Generic Name Dose Route Start Last Admin Trade Name Freq PRN Reason Stop Dose Admin Acetaminophen 650 mg 03/18/20 05:17 Tylenol PO Q4H PRN Pain MILD(1-3)/Fever >100.5/SELF Arformoterol Tartrate 15 mcg 03/19/20 10:45 03/19/20 11:42 Brovana Nebu IH 15 mcg Q12HRT EMBER Administration Budesonide 0.5 mg 03/19/20 10:45 03/19/20 11:42 Pulmicort IH 0.5 mg Q12HRT EMBER Administration Dextrose 50 ml 03/18/20 06:54 D50w (25gm) Syringe IV Q30MIN PRN Hypoglycemia Protocol Enoxaparin Sodium 40 mg 03/18/20 10:00 03/19/20 09:16 Enoxaparin SUB-Q 40 mg QDAY@1000 EMBER Administration Sodium Chloride 1,000 mls @ 75 mls/hr 03/18/20 07:00 03/18/20 23:50 Nacl 0.9% 1000 Ml IV 75 mls/hr DIRECT EMBER Administration Cefepime HCl 2 gm in 100 mls @ 200 mls/hr 03/18/20 10:00 03/19/20 09:16 Cefepime/Ns 2 Gm/100 Ml IV 200 mls/hr Q12HR EMBER Administration Metronidazole 500 mg in 100 mls @ 100 mls/hr 03/18/20 22:00 03/19/20 13:00 Flagyl 500 Mg/100 Ml IV 100 mls/hr Q8HR EMBER Administration Protocol Vancomycin HCl 1,500 mg/ 530 mls @ 333.333 mls/hr 03/19/20 12:00 03/19/20 13:36 Sodium Chloride IV 333.333 mls/hr Q12H EMBER Administration Insulin Human Isoph/Insulin Regular 35 unit 03/19/20 17:00 03/19/20 16:00 Humulin 70/30 SUB-Q 35 unit BIDDIAB EMBER Administration Insulin Human Lispro 0 unit 03/18/20 07:30 03/19/20 16:00 Humalog SUB-Q 2 unit ACHS EMBER Administration Protocol Ipratropium Gilbert 0.5 mg 03/19/20 11:00 03/19/20 11:42 Atrovent IH 0.5 mg Q6HRT EMBER Administration Methylprednisolone Sodium Succinate 60 mg 03/19/20 18:00 Solu-Medrol IV Q6HR EMBER Morphine Sulfate 2 mg 03/19/20 08:15 Morphine IV Q4H PRN Pain, Moderate (4-6) Ondansetron HCl 4 mg 05/11/20 05:17 Zofran IV Q8H PRN Nausea And Vomiting Oxycodone/Acetaminophen 1 tab 03/18/20 05:17 03/19/20 13:01 Percocet 5/325 PO 1 tab Q6H PRN Administration Pain, Moderate (4-6) Sodium Chloride 10 ml 03/18/20 10:00 03/19/20 09:17 Sodium Chloride Flush Syringe 10 Ml IV 10 ml BID EMBER Administration Sodium Chloride 10 ml 03/18/20 05:17 Sodium Chloride Flush Syringe 10 Ml IV PRN PRN LINE FLUSH
[2020-03-19] MEDS: methylPREDNISolone Sod Succinate 125 MG/2 ML INJ IV SCH (18:08)
[2020-03-19] MEDS ORDERED: NON-FORMULARY EACH (Budesonide/Formoterol Fumarate [Symbicort 160-4.5 Mcg Inhaler] 10.2 GM IH SCH (22:00)
[2020-03-19] MEDS: MORPHINE 2 MG/1 ML INJ IV PRN (22:22)
[2020-03-20] MEDS: IPRATROPIUM 0.02% NEBU 2.5 ML IH SCH ×5 (00:15→22:00)
[2020-03-20] MEDS: methylPREDNISolone Sod Succinate 125 MG/2 ML INJ IV SCH ×4 (01:01→17:41)
[2020-03-20] MEDS: VANCOMYCIN 1,500 MG in SODIUM CHLORIDE 0.9% 500 ML 500 ML IV SCH ×2 (01:01→12:01)
[2020-03-20] MEDS: oxyCODONE /ACETAMINOPHEN 5-325MG TAB PO PRN ×4 (03:17→23:32)
[2020-03-20 06:32] LABS: Hematocrit 32.3 % (35.5-45.6); Hemoglobin 10.3 gm/dl (11.8-15.2); Mean Corpuscular HGB Conc 32 % (32-34); Mean Corpuscular Volume 85 fl (84-94); Platelet Count 233 K/mm3 (140-440); Red Blood Count 3.79 M/mm3 (3.65-5.03); Red Cell Distribution Width 15.5 % (13.2-15.2)
[2020-03-20] MEDS: metroNIDAZOLE/NS 500 MG/100 ML 500 MG/100 ML BAG IV SCH ×3 (06:33→23:32)
[2020-03-20 06:53] LABS: BUN/Creatinine Ratio 23; Blood Urea Nitrogen 23 mg/dL (9-20); Calcium 8.2 mg/dL (8.4-10.2); Hemolysis Index 2
[2020-03-20] MEDS: SODIUM CHLORIDE 0.9% 1000 ML 1,000 ML IV SCH (07:06)
[2020-03-20] MEDS: ARFORMOTEROL 15 MCG/2 ML NEBU IH SCH ×2 (09:16→22:00)
[2020-03-20] MEDS: BUDESONIDE 0.5 MG/2 ML NEBU IH SCH ×2 (09:16→22:00)
[2020-03-20] MEDS: INSULIN LISPRO 100 UNIT/ML SUB-Q SCH ×4 (10:00→22:27)
[2020-03-20] MEDS: ENOXAPARIN 40 MG/0.4 ML INJ SUB-Q SCH (10:01)
[2020-03-20] MEDS: INSULIN NPH/REGULAR 70/30 INJ SUB-Q SCH ×2 (10:01→17:27)
[2020-03-20] MEDS: CEFEPIME/NS 2 GM/100 ML 2 GM/100 ML BAG IV SCH ×2 (10:02→22:27)
--- NOTE | 2020-03-20 11:02 | Progress Note ---
Assessment and Plan Cultures: Blood culture 03/17/2020 no growth so far. COVID negative Assessment: 74 y/o male with a history of hypertension, diabetes, BPH, COPD, mordid obesity, admitted on 03/17/2020 due to 2-day history of right testicle edema, pain and erythema associated with 24 hour-history of inability to u rinate: #Severe sepsis: leukocytosis better, likely due to UTI +/- right testicular edema/pain +/- pneumonia. Very high procal 8.7. #Right testicular edema/erythema/pain: ? unclear etiology, not better. US with moderate hydrocele. Hydroceles are usually painless unless infected. Evaluated by likely hydrocele, no Fornier. #Complicated UTI with urinary retention: s/p graham in the ED #Presumed pneumonia: ? CAP. COVID negative. Doubt COVID. #Elevated Ddimer ? given tachycardia and hypoxemia, unclear etiology #Acute hypoxemic respiratory failure: unclear per pulm +COPD exacerbation now on IV solumedrol #?MILI: creat 1.4, renally adjusted abx, now resolved . Recommendations: Close eval of testicular pain Repeat testicular US due to persistent severe pain and consider re-evaluation Urine culture never sent continue cefepime 2 gm IV q 12h Day 3 continue metronidazole 500 mg iv q8 hour Day 3 Stop vancomycin with PK consult Day 3 - no evidence of MRSA Discussed with Dr Tom Will follow. Heather Bauer MD Infectious Diseases [employer] [facility] M [phone] O [phone] Subjective Date of service: 03/20/20 Principal diagnosis: sepsis Interval history: Now on NC 3L sat 96% c/o same severe right testicular pain 10 of 10, no fever Objective - Exam Narrative Exam: General appearance: Alert in NAD on NC O2 Eyes: anicteric sclerae, moist conjunctivae; no lid-lag; PERRLA HENT: Atraumatic; oropharynx clear Lungs: diminished bs angelica CV: RRR no murmur Abdomen: distended tense non tender Extremities: no edema, no cyanosis Genitals: right scrotum with edema, tenderness and erythema, testicle shortened, +graham in place Skin: No rash. Psych: anxious Neuro: alert and oriented x 3. Moving all extermities - Constitutional Vitals: Vital Signs Temp Pulse Resp BP Pulse Ox 97.5 F L 79 18 96/47 96 03/20/20 08:00 03/20/20 09:17 03/20/20 09:17 03/18/20 06:00 03/20/20 08:00 Temperature -Last 24 Hours Temperature 97.5 F Temperature 98.3 F Temperature 98.9 F Temperature 98.3 F Temperature 98.1 F Temperature 98.4 F Temperature 98.4 F - Labs CBC & Chem 7: 03/20/20 05:47 03/20/20 05:47 Labs: Abnormal lab results 03/19/20 03/19/20 03/19/20 Range/Units 11:42 15:44 22:54 WBC (4.5-11.0) K/mm3 Hgb (11.8-15.2) gm/dl Hct (35.5-45.6) % MCH (28-32) pg RDW (13.2-15.2) % BUN (9-20) mg/dL Glucose (75-100) mg/dL POC Glucose 216 H 183 H 262 H (70-105) Calcium (8.4-10.2) mg/dL 03/20/20 03/20/20 03/20/20 Range/Units 05:47 05:47 08:13 WBC 14.5 H (4.5-11.0) K/mm3 Hgb 10.3 L (11.8-15.2) gm/dl Hct 32.3 L (35.5-45.6) % MCH 27 L (28-32) pg RDW 15.5 H (13.2-15.2) % BUN 23 H (9-20) mg/dL Glucose 258 H (75-100) mg/dL POC Glucose 272 H (70-105) Calcium 8.2 L (8.4-10.2) mg/dL
--- NOTE | 2020-03-20 12:04 | Progress Note ---
Assessment and Plan 74 y/o male with COPD exacerbation and acute respiratory failure secondary to sepsis from testicular issues. 1. Continue BID pulmicort and Brovana 2. Continue PRN neb treatments. 3. Continue IV steroids at current dosing at least through tomorrow and then will consider tapering. Patient is on chronic steroid therapy at home. 4. Patient unable to tolerate full facemask bipap. Needs to likely have a repeat study [facility] to see if he would qualify for just the nasal mask or for nasal pillows 5. Continue graham and montior urine output. 6. IV abx therapy per ID Pulm jose daniel has improved and think that he could be moved form step down unit. Subjective Date of service: 03/20/20 Principal diagnosis: sepsis Interval history: No acute events. Weaned off HFNC. Work of breathing is much easier as well. Objective Vital Signs - 12hr 03/20/20 03/20/20 03/20/20 00:15 04:00 08:00 Temperature 98.3 F 97.5 F L Pulse Rate [ 82 Anterior Bilateral Throughout] Pulse Rate [ 80 77 From Monitor] Respiratory 12 12 Rate Respiratory 18 Rate [Anterior Bilateral Throughout] O2 Sat by Pulse 96 98 Oximetry 03/20/20 09:17 Temperature Pulse Rate [ 79 Anterior Bilateral Throughout] Pulse Rate [ From Monitor] Respiratory Rate Respiratory 18 Rate [Anterior Bilateral Throughout] O2 Sat by Pulse Oximetry Constitutional: appears uncomfortable Eyes: non-icteric ENT: oropharynx moist Neck: supple, no JVD Effort: mildly labored Ascultation: Bilateral: diminished breath sounds, wheezes Percussion: Bilateral: not dull Tactile fremitus: Bilateral: normal Cardiovascular: regular rate and rhythm Gastrointestinal: normoactive bowel sounds, soft Extremities: no edema, pink and warm Neurologic: normal mental status, non-focal exam Psychiatric: mood appropriate CBC and BMP: 03/20/20 05:47 03/20/20 05:47 ABG, PT/INR, D-dimer: PT/INR, D-dimer PT 14.7 Sec. (12.2-14.9) 03/17/20 22:20 INR 1.17 (0.87-1.13) H 03/17/20 22:20 D-Dimer 701.67 ng/mlDDU (0-234) H 03/18/20 03:27 Abnormal lab findings: Abnormal Labs 03/17/20 03/17/20 03/17/20 22:20 22:20 22:20 WBC 22.0 H Hgb 11.5 L Hct 35.0 L MCH RDW 15.4 H Seg Neuts % (Manual) 88.0 H Lymphocytes % (Manual) 7.0 L Monocytes % (Manual) Basophils % (Manual) Seg Neutrophils # Man 19.4 H Monocytes # (Manual) 1.1 H Basophils # (Manual) INR 1.17 H D-Dimer Sodium 134 L Chloride 89.7 L Carbon Dioxide 31 H BUN 24 H Glucose 160 H POC Glucose Calcium Ferritin Lactate Dehydrogenase C-Reactive Protein NT-Pro-B Natriuret Pep Albumin Urine WBC (Auto) 03/17/20 03/17/20 03/18/20 22:20 23:02 03:27 WBC Hgb Hct MCH RDW Seg Neuts % (Manual) Lymphocytes % (Manual) Monocytes % (Manual) Basophils % (Manual) Seg Neutrophils # Man Monocytes # (Manual) Basophils # (Manual) INR D-Dimer 701.67 H Sodium Chloride Carbon Dioxide BUN Glucose POC Glucose Calcium Ferritin Lactate Dehydrogenase C-Reactive Protein NT-Pro-B Natriuret Pep 1041 H Albumin 3.4 L Urine WBC (Auto) > 182.0 H 03/18/20 03/18/20 03/18/20 03:27 03:27 09:04 WBC 21.2 H Hgb 11.4 L Hct MCH 27 L RDW 15.8 H Seg Neuts % (Manual) 83.0 H Lymphocytes % (Manual) 7.0 L Monocytes % (Manual) 8.0 H Basophils % (Manual) 2.0 H Seg Neutrophils # Man 17.6 H Monocytes # (Manual) 1.7 H Basophils # (Manual) 0.4 H INR D-Dimer Sodium Chloride Carbon Dioxide BUN Glucose 181 H POC Glucose Calcium Ferritin 405.9 H Lactate Dehydrogenase 352 H C-Reactive Protein 26.60 H NT-Pro-B Natriuret Pep Albumin Urine WBC (Auto) 03/18/20 03/18/20 03/18/20 09:04 09:09 11:59 WBC Hgb Hct MCH RDW Seg Neuts % (Manual) Lymphocytes % (Manual) Monocytes % (Manual) Basophils % (Manual) Seg Neutrophils # Man Monocytes # (Manual) Basophils # (Manual) INR D-Dimer Sodium 132 L Chloride 90.4 L Carbon Dioxide BUN 28 H Glucose 193 H POC Glucose 194 H 229 H Calcium Ferritin Lactate Dehydrogenase C-Reactive Protein NT-Pro-B Natriuret Pep Albumin Urine WBC (Auto) 03/18/20 03/19/20 03/19/20 17:18 00:30 04:04 WBC 16.5 H Hgb 10.1 L Hct 31.9 L MCH 27 L RDW 15.6 H Seg Neuts % (Manual) Lymphocytes % (Manual) Monocytes % (Manual) Basophils % (Manual) Seg Neutrophils # Man Monocytes # (Manual) Basophils # (Manual) INR D-Dimer Sodium Chloride Carbon Dioxide BUN Glucose POC Glucose 182 H 175 H Calcium Ferritin Lactate Dehydrogenase C-Reactive Protein NT-Pro-B Natriuret Pep Albumin Urine WBC (Auto) 03/19/20 03/19/20 03/19/20 04:04 08:42 11:42 WBC Hgb Hct MCH RDW Seg Neuts % (Manual) Lymphocytes % (Manual) Monocytes % (Manual) Basophils % (Manual) Seg Neutrophils # Man Monocytes # (Manual) Basophils # (Manual) INR D-Dimer Sodium 134 L Chloride 92.0 L Carbon Dioxide BUN 24 H Glucose 245 H POC Glucose 226 H 216 H Calcium Ferritin Lactate Dehydrogenase C-Reactive Protein NT-Pro-B Natriuret Pep Albumin Urine WBC (Auto) 03/19/20 03/19/20 03/20/20 15:44 22:54 05:47 WBC 14.5 H Hgb 10.3 L Hct 32.3 L MCH 27 L RDW 15.5 H Seg Neuts % (Manual) Lymphocytes % (Manual) Monocytes % (Manual) Basophils % (Manual) Seg Neutrophils # Man Monocytes # (Manual) Basophils # (Manual) INR D-Dimer Sodium Chloride Carbon Dioxide BUN Glucose POC Glucose 183 H 262 H Calcium Ferritin Lactate Dehydrogenase C-Reactive Protein NT-Pro-B Natriuret Pep Albumin Urine WBC (Auto) 03/20/20 03/20/20 03/20/20 05:47 08:13 11:20 WBC Hgb Hct MCH RDW Seg Neuts % (Manual) Lymphocytes % (Manual) Monocytes % (Manual) Basophils % (Manual) Seg Neutrophils # Man Monocytes # (Manual) Basophils # (Manual) INR D-Dimer Sodium Chloride Carbon Dioxide BUN 23 H Glucose 258 H POC Glucose 272 H 422 H Calcium 8.2 L Ferritin Lactate Dehydrogenase C-Reactive Protein NT-Pro-B Natriuret Pep Albumin Urine WBC (Auto)
--- NOTE | 2020-03-20 16:27 | Progress Note ---
Subjective Date of service: 03/20/20 Principal diagnosis: sepsis Interval history: Cultures: Blood culture 03/17/2020 no growth COVID negative Patient is 74 years old male with history of hypertension, diabetes, BPH, COPD and asthma. Patient brought to the emergency room via EMS from home for evaluation of urine retention and right testicular swelling started today. Patient stated that he had similar episode in January where he had a Graham catheter for a week. Patient also noticed to have a shortness of breath. Patient stated that he is having bilateral lower extremity swelling. Patient denied any fever or chills. No nausea or vomiting. No chest pain. kathryn---rt hydrocele CTAP (03-19-20) no kidneys, + edema of scrotal (no abscess), graham in bladder graham draining easton urine baseball size rt testes----no skin discoloration Retention in a 74 yr old---recommend home with graham & flomax 1qd when stable RT hydrocele & inflammation ----does not appear to be Yashira's gangrene needs better control of Diabetes Objective - Constitutional Vitals: Vital Signs - 12hr 03/20/20 03/20/20 03/20/20 08:00 09:17 12:00 Temperature 97.5 F L 97.9 F Pulse Rate 78 Pulse Rate [ 79 Anterior Bilateral Throughout] Pulse Rate [ 77 78 From Monitor] Respiratory 12 15 Rate Respiratory 18 Rate [Anterior Bilateral Throughout] O2 Sat by Pulse 98 98 Oximetry 03/20/20 03/20/20 03/20/20 14:00 15:06 16:00 Temperature Pulse Rate 79 Pulse Rate [ 79 Anterior Bilateral Throughout] Pulse Rate [ 78 From Monitor] Respiratory 15 Rate Respiratory 20 Rate [Anterior Bilateral Throughout] O2 Sat by Pulse 96 98 Oximetry - Labs CBC & Chem 7: 03/20/20 05:47 03/20/20 05:47 Labs: Abnormal lab results 03/19/20 03/20/20 03/20/20 Range/Units 22:54 05:47 05:47 WBC 14.5 H (4.5-11.0) K/mm3 Hgb 10.3 L (11.8-15.2) gm/dl Hct 32.3 L (35.5-45.6) % MCH 27 L (28-32) pg RDW 15.5 H (13.2-15.2) % BUN 23 H (9-20) mg/dL Glucose 258 H (75-100) mg/dL POC Glucose 262 H (70-105) Calcium 8.2 L (8.4-10.2) mg/dL 03/20/20 03/20/20 Range/Units 08:13 11:20 WBC (4.5-11.0) K/mm3 Hgb (11.8-15.2) gm/dl Hct (35.5-45.6) % MCH (28-32) pg RDW (13.2-15.2) % BUN (9-20) mg/dL Glucose (75-100) mg/dL POC Glucose 272 H 422 H (70-105) Calcium (8.4-10.2) mg/dL Medications & Allergies - Medications Allergies/Adverse Reactions: Allergies No Known Allergies Allergy (Unverified 02/23/18 19:18) Home Medications: Home Medications Medication Instructions Recorded Confirmed Last Taken Type Albuterol INH(or & Nicu Only) 2 puff IH QID PRN 30 Days #1 device 02/26/18 03/20/20 Unknown Rx [Proair] Budesonide/Formoterol Fumarate 10.2 gm IH BID 30 Days #1 02/26/18 03/20/20 Unkn own Rx [Symbicort 160-4.5 Mcg Inhaler] [email or web address] Insulin NPH/Regular [NovoLIN 70/30] 25 unit SUB-Q BIDDIAB 30 Days 02/26/18 03/20/20 Unknown Rx units Insulin Regular, Human [HumuLIN R] See Protocol SUB-Q ACHS 30 Days 02/26/18 03/20/20 Unknown Rx units amLODIPine 10 mg PO DAILY #30 tab 02/26/18 03/20/20 Unknown Rx levoFLOXacin [Levaquin TAB] 750 mg PO Q24HR #4 tablet 02/26/18 03/20/20 Unknown Rx predniSONE [Prednisone] 50 mg PO QAC #5 tablet 02/26/18 03/20/20 Unknown Rx Active Medications: Generic Name Dose Route Start Last Admin Trade Name Freq PRN Reason Stop Dose Admin Acetaminophen 650 mg 03/18/20 05:17 Tylenol PO Q4H PRN Pain MILD(1-3)/Fever >100.5/SELF Arformoterol Tartrate 15 mcg 03/19/20 10:45 03/20/20 09:16 Brovana Nebu IH 15 mcg Q12HRT EMBER Administration Budesonide 0.5 mg 03/19/20 10:45 03/20/20 09:16 Pulmicort IH 0.5 mg Q12HRT EMBER Administration Dextrose 50 ml 03/18/20 06:54 D50w (25gm) Syringe IV Q30MIN PRN Hypoglycemia Protocol Enoxaparin Sodium 40 mg 03/18/20 10:00 03/20/20 10:01 Enoxaparin SUB-Q 40 mg QDAY@1000 EMBER Administration Sodium Chloride 1,000 mls @ 75 mls/hr 03/18/20 07:00 03/20/20 07:06 Nacl 0.9% 1000 Ml IV 75 mls/hr DIRECT EMBER Administration Cefepime HCl 2 gm in 100 mls @ 200 mls/hr 03/18/20 10:00 03/20/20 10:02 Cefepime/Ns 2 Gm/100 Ml IV 200 mls/hr Q12HR EMBER Administration Metronidazole 500 mg in 100 mls @ 100 mls/hr 03/18/20 22:00 03/20/20 14:03 Flagyl 500 Mg/100 Ml IV 100 mls/hr Q8HR EMBER Administration Protocol Insulin Human Isoph/Insulin Regular 35 unit 03/19/20 17:00 03/20/20 10:01 Humulin 70/30 SUB-Q 35 unit BIDDIAB EMBER Administration Insulin Human Lispro 0 unit 03/18/20 07:30 03/20/20 12:00 Humalog SUB-Q 8 unit ACHS EMBER Administration Protocol Ipratropium [place] 0.5 mg 03/19/20 11:00 03/20/20 15:06 Atrovent IH 0.5 mg Q6HRT EMBER Administration Methylprednisolone Sodium Succinate 60 mg 03/19/20 18:00 03/20/20 12:01 Solu-Medrol IV 60 mg Q6HR EMBER Administration Morphine Sulfate 2 mg 03/19/20 08:15 03/19/20 22:22 Morphine IV 2 mg Q4H PRN Administration Pain, Moderate (4-6) Ondansetron HCl 4 mg 03/18/20 05:17 Zofran IV Q8H PRN Nausea And Vomiting Oxycodone/Acetaminophen 1 tab 03/18/20:17 03/20/20 10:00 Percocet 5/325 PO 1 tab Q6H PRN Administration Pain, Moderate (4-6) Sodium Chloride 10 ml 03/18/20 10:00 03/19/20 22:24 Sodium Chloride Flush Syringe 10 Ml IV 10 ml BID EMBER Administration Sodium Chloride 10 ml 03/18/20 05:17 Sodium Chloride Flush Syringe 10 Ml IV PRN PRN LINE FLUSH
--- NOTE | 2020-03-20 17:13 | Progress Note ---
Assessment and Plan Assessment and plan: 74-year-old man with a history of hypertension, diabetes, BPH, COPD comes emergency room for evaluation. Patient states that over the last 1 day he was unable to urinate and his right testicle was painful over the last 2 days. He denies fever, cough, chills, diarrhea, sick contact, dysuria, frequency. The patient will be admitted for urinary retention, UTI, testicular pain CTAP: Nonspecific scrotal skin thickening suggestive of a cellulitis. No discrete abscess or soft tissue gas. Small right hydrocele. Hepatic steatosis. Cholecystectomy Sepsis/UTI/SCROTAL Cellulites Continue abx ID consulted Sepsis protocol Acute Cystitis Follow urine culture continue abx Acute Hypoxemic Respiratory failure Wean off High flow oxygen Pulmonary consult Resume home meds and taper steroids as needed Urinary retention/hydrocele status post Haskins, consult urology- discussed with them Urology recommends discharge with Haskins. Pneumonia Ruled out COVID19 ID following Monitor Cultures Diabetes Mellitus Check fingersticks, start sliding scale Blood sugar still significantly elevated secondary to steroid therapy. Will adjust insulin and also give additional 12 units of regular insulin today. Hypertension Continue appropriate outpatient medications DVT prophylaxis Discussed with ID History Interval history: Patient seen and examined, reports pain in the scrotal area, still with some shortness of breath but improved compared to yesterday Hospitalist Physical - Physical exam Narrative exam: Gen. appearance: Patient lying in bed, mild respiratory distress HEENT: Normocephalic, atraumatic, pupils equally round and reactive to light, extraocular movement intact, and no sclericterus,. No JVD or thyromegaly or nodule,neck supple, no carotid bruit ,mucous membranes moist, no exudate or erythema Heart: S1, S2, regular rate and rhythm Lungs: Crackles, breathing comfortable Abdomen: Positive bowel sounds, nontender, nondistended, no organomegaly Extremity: no edema, cyanosis, clubbing Skin: No rash, erythema around the scrotal area with scrotal swelling. Nodules, warm, dry Neuro: Cranial nerves II through XII, speech is fluent, moves extremities, sensory intact - Constitutional Vitals: Temp Pulse Resp BP Pulse Ox 97.9 F 78 15 96/47 98 03/20/20 12:00 03/20/20 16:00 03/20/20 16:00 03/18/20 06:00 03/20/20 16:00 Results - Labs CBC & Chem 7: 03/20/20 05:47 03/20/20 05:47 Labs: Laboratory Last Values WBC 14.5 K/mm3 (4.5-11.0) H 03/20/20 05:47 RBC 3.79 M/mm3 (3.65-5.03) 03/20/20 05:47 Hgb 10.3 gm/dl (11.8-15.2) L 03/20/20 05:47 Hct 32.3 % (35.5-45.6) L 03/20/20 05:47 MCV 85 fl (84-94) 03/20/20 05:47 MCH 27 pg (28-32) L 03/20/20 05:47 MCHC 32 % (32-34) 03/20/20 05:47 RDW 15.5 % (13.2-15.2) H 03/20/20 05:47 Plt Count 233 K/mm3 (140-440) 03/20/20 05:47 Add Manual Diff Complete 03/18/20 09:04 Total Counted 100 03/18/20 09:04 Seg Neuts % (Manual) 83.0 % (40.0-70.0) H 03/18/20 09:04 Band Neutrophils % 0 % 03/18/20 09:04 Lymphocytes % (Manual) 7.0 % (13.4-35.0) L 03/18/20 09:04 Reactive Lymphs % (Man) 0 % 03/18/20 09:04 Monocytes % (Manual) 8.0 % (0.0-7.3) H 03/18/20 09:04 Eosinophils % (Manual) 0 % (0.0-4.3) 03/18/20 09:04 Basophils % (Manual) 2.0 % (0.0-1.8) H 03/18/20 09:04 Metamyelocytes % 0 % 03/18/20 09:04 Myelocytes % 0 % 03/18/20 09:04 Promyelocytes % 0 % 03/18/20 09:04 Blast Cells % 0 % 03/18/20 09:04 Nucleated RBC % Not Reportable 03/18/20 09:04 Seg Neutrophils # Man 17.6 K/mm3 (1.8-7.7) H 03/18/20 09:04 Band Neutrophils # 0.0 K/mm3 03/18/20 09:04 Lymphocytes # (Manual) 1.5 K/mm3 (1.2-5.4) 03/18/20 09:04 Abs React Lymphs (Man) 0.0 K/mm3 03/18/20 09:04 Monocytes # (Manual) 1.7 K/mm3 (0.0-0.8) H 03/18/20 09:04 Eosinophils # (Manual) 0.0 K/mm3 (0.0-0.4) 03/18/20 09:04 Basophils # (Manual) 0.4 K/mm3 (0.0-0.1) H 03/18/20 09:04 Metamyelocytes # 0.0 K/mm3 03/18/20 09:04 Myelocytes # 0.0 K/mm3 03/18/20 09:04 Promyelocytes # 0.0 K/mm3 03/18/20 09:04 Blast Cells # 0.0 K/mm3 03/18/20 09:04 WBC Morphology 1+ 03/18/20 09:04 WBC Morphology Not Reportable 03/18/20 09:04 Hypersegmented Neuts Not Reportable 03/18/20 09:04 Hyposegmented Neuts Not Reportable 03/18/20 09:04 Hypogranular Neuts Not Reportable 03/18/20 09:04 Smudge Cells Not Reportable 03/18/20 09:04 Toxic Granulation Not Reportable 03/18/20 09:04 Toxic Vacuolation Not Reportable 03/18/20 09:04 Dohle Bodies Not Reportable 03/18/20 09:04 Pelger-Huet Anomaly Not Reportable 03/18/20 09:04 Rosario Rods Not Reportable 03/18/20 09:04 Platelet Estimate Consistent w auto 03/18/20 09:04 Clumped Platelets Not Reportable 03/18/20 09:04 Plt Clumps, EDTA Not Reportable 03/18/20 09:04 Large Platelets Not Reportable 03/18/20 09:04 Giant Platelets Not Reportable 03/18/20 09:04 Platelet Satelliting Not Reportable 03/18/20 09:04 Plt Morphology Comment Not Reportable 03/18/20 09:04 RBC Morphology Normal 03/18/20 09:04 Dimorphic RBCs Not Reportable 03/18/20 09:04 Polychromasia Not Reportable 03/18/20 09:04 Hypochromasia Not Reportable 03/18/20 09:04 Poikilocytosis Not Reportable 03/18/20 09:04 Anisocytosis Not Reportable 03/18/20 09:04 Microcytosis Not Reportable 03/18/20 09:04 Macrocytosis Not Reportable 03/18/20 09:04 Spherocytes Not Reportable 03/18/20 09:04 Pappenheimer Bodies Not Reportable 03/18/20 09:04 Sickle Cells Not Reportable 03/18/20 09:04 Target Cells Not Reportable 03/18/20 09:04 Tear Drop Cells Not Reportable 03/18/20 09:04 Ovalocytes Not Reportable 03/18/20 09:04 Helmet Cells Not Reportable 03/18/20 09:04 [place] Bodies Not Reportable 03/18/20 09:04 Merigold Rings Not Reportable 03/18/20 09:04 Renetta Cells Not Reportable 03/18/20 09:04 Bite Cells Not Reportable 03/18/20 09:04 Crenated Cell Not Reportable 03/18/20 09:04 Elliptocytes Not Reportable 03/18/20 09:04 Acanthocytes (Spur) Not Reportable 03/18/20 09:04 Rouleaux Not Reportable 03/18/20 09:04 Hemoglobin C Crystals Not Reportable 03/18/20 09:04 Schistocytes Not Reportable 03/18/20 09:04 Malaria parasites Not Reportable 03/18/20 09:04 Christopher Bodies Not Reportable 03/18/20 09:04 Hem Pathologist Commnt No 03/18/20 09:04 PT 14.7 Sec. (12.2-14.9) 03/17/20 22:20 INR 1.17 (0.87-1.13) H 03/17/20 22:20 APTT 25.7 Sec. (24.2-36.6) 03/17/20 22:20 D-Dimer 701.67 ng/mlDDU (0-234) H 03/18/20 03:27 Sodium 140 mmol/L (137-145) 03/20/20 05:47 Potassium 4.4 mmol/L (3.6-5.0) 03/20/20 05:47 Chloride 98.9 mmol/L (98-107) 03/20/20 05:47 Carbon Dioxide 28 mmol/L (22-30) 03/20/20 05:47 Anion Gap 18 mmol/L 03/20/20 05:47 BUN 23 mg/dL (9-20) H 03/20/20 05:47 Creatinine 1.0 mg/dL (0.8-1.5) 03/20/20 05:47 Estimated GFR > 60 ml/min 03/20/20 05:47 BUN/Creatinine Ratio 23 % 03/20/20 05:47 Glucose 258 mg/dL (75-100) H 03/20/20 05:47 POC Glucose 416 (70-105) H 03/20/20 16:53 Lactic Acid 1.30 mmol/L (0.7-2.0) 03/18/20 09:04 Calcium 8.2 mg/dL (8.4-10.2) L 03/20/20 05:47 Ferritin 405.9 ng/mL (13.0-400.0) H 03/18/20 03:27 Total Bilirubin 0.60 mg/dL (0.1-1.2) 03/17/20 22:20 Direct Bilirubin 0.2 mg/dL (0-0.2) 03/17/20 22:20 Indirect Bilirubin 0.4 mg/dL 03/17/20 22:20 AST 34 units/L (5-40) 03/17/20 22:20 ALT 28 units/L (7-56) 03/17/20 22:20 Alkaline Phosphatase 54 units/L (35-129) 03/17/20 22:20 Lactate Dehydrogenase 352 units/L (91-180) H 03/18/20 03:27 Troponin T < 0.010 ng/mL (0.00-0.029) 03/17/20 22:20 C-Reactive Protein 26.60 mg/dL (0.00-1.30) H 03/18/20 03:27 NT-Pro-B Natriuret Pep 1041 pg/mL (0-900) H 03/17/20 22:20 Total Protein 6.7 g/dL (6.3-8.2) 03/17/20 22:20 Albumin 3.4 g/dL (3.9-5) L 03/17/20 22: Albumin/Globulin Ratio 1.0 % 03/17/20 22: Procalcitonin 8.71 ng/mL (<0.15) 03/18/20 03:27 Urine Color Yellow (Yellow) 03/17/20 23:02 Urine Turbidity Cloudy (Clear) 03/17/20 23: Urine pH 6.0 (5.0-7.0) 03/17/20 23: Ur Specific [place] 1.013 (1.003-1.030) 03/17/20 23: Urine Protein 30 mg/dl mg/dL (Negative) 03/17/20 23: Urine Glucose (UA) 50 mg/dL (Negative) 03/17/20: Urine Ketones Neg mg/dL (Negative) 03/17/20 23: Urine Blood Mod (Negative) 03/17/20 23: Urine Nitrite Neg (Negative) 03/17/20 23: Urine Bilirubin Neg (Negative) 03/17/20 23: Urine Urobilinogen < 2.0 mg/dL (<2.0) 03/17/20 23:02 Ur Leukocyte Esterase Lg (Negative) 03/17/20 23: Urine WBC (Auto) > 182.0 /HPF (0.0-6.0) H 03/17/20 23:02 Urine RBC (Auto) 2.0 /HPF (0.0-6.0) 03/17/20 23:02 Urine Bacteria (Auto) 2+ /HPF (Negative) 03/17/20 23: Urine WBC Clumps 3+ /HPF 03/17/20 23:02 Urine Mucus 2+ /HPF 03/17/20 23: Coronavirus (PCR) Negative (Negative) 03/18/20 Unknown Microbiology: Microbiology 03/17/20 23:18 Peripheral/Venous Blood Culture - Preliminary NO GROWTH AFTER 48 HOURS 03/17/20 23:18 Peripheral/Venous Blood Culture - Preliminary NO GROWTH AFTER 48 HOURS Haskins/IV: Voiding Method Indwelling Catheter IV Catheter Type [Right Hand] INT / Saline Lock IV Catheter Type [Right INT / Saline Lock Forearm] IV Catheter Type [Left Hand] INT / Saline Lock Active Medications - Current Medications Current Medications: Generic Name Dose Route Start Last Admin Trade Name Freq PRN Reason Stop Dose Admin Acetaminophen 650 mg 03/18/20 05:17 Tylenol PO Q4H PRN Pain MILD(1-3)/Fever >100.5/SELF Arformoterol Tartrate 15 mcg 03/19/20 10:45 03/20/20 09:16 Brovana Nebu IH 15 mcg Q12HRT EMBER Administration Budesonide 0.5 mg 03/19/20 10:45 03/20/20 09:16 Pulmicort IH 0.5 mg Q12HRT EMBER Administration Dextrose 50 ml 03/18/20 06:54 D50w (25gm) Syringe IV Q30MIN PRN Hypoglycemia Protocol Enoxaparin Sodium 40 mg 03/18/20 10:00 03/20/20 10:01 Enoxaparin SUB-Q 40 mg QDAY@1000 EMBER Administration Sodium Chloride 1,000 mls @ 75 mls/hr 03/18/20 07:00 03/20/20 07:06 Nacl 0.9% 1000 Ml IV 75 mls/hr DIRECT EMBER Administration Cefepime HCl 2 gm in 100 mls @ 200 mls/hr 03/18/20 10:00 03/20/20 10:02 Cefepime/Ns 2 Gm/100 Ml IV 200 mls/hr Q12HR EMBER Administration Metronidazole 500 mg in 100 mls @ 100 mls/hr 03/18/20 22:00 03/20/20 14:03 Flagyl 500 Mg/100 Ml IV 100 mls/hr Q8HR EMBER Administration Protocol Insulin Human Isoph/Insulin Regular 40 unit 03/20/20 17:11 Humulin 70/30 SUB-Q BIDDIAB EMBER Insulin Human Lispro 0 unit 03/18/20 07:30 03/20/20 12:00 Humalog SUB-Q 8 unit ACHS EMBER Administration Protocol Insulin Human Regular 12 units 03/20/20 17:11 Humulin R SUB-Q 03/20/20 17:12 ONCE ONE Ipratropium [place] 0.5 mg 03/19/20 11:00 03/20/20 15:06 Atrovent IH 0.5 mg Q6HRT EMBER Administration Methylprednisolone Sodium Succinate 60 mg 03/19/20 18:00 03/20/20 12:01 Solu-Medrol IV 60 mg Q6HR EMBER Administration Morphine Sulfate 2 mg 03/19/20 08:15 03/19/20 22:22 Morphine IV 2 mg Q4H PRN Administration Pain, Moderate (4-6) Ondansetron HCl 4 mg 03/18/20 05:17 Zofran IV Q8H PRN Nausea And Vomiting Oxycodone/Acetaminophen 1 tab 03/18/20 05:17 03/20/20 10:00 Percocet 5/325 PO 1 tab Q6H PRN Administration Pain, Moderate (4-6) Sodium Chloride 10 ml 03/18/20 10:00 03/19/20 22:24 Sodium Chloride Flush Syringe 10 Ml IV 10 ml BID EMBER Administration Sodium Chloride 10 ml 03/18/20 05:17 Sodium Chloride Flush Syringe 10 Ml IV PRN PRN LINE FLUSH
[2020-03-20] MEDS ORDERED: INSULIN REGULAR, HUMAN 100 UNITS/1 ML SUB-Q ONE (18:00)
--- NOTE | 2020-03-20 22:28 | Ultrasound Report ---
ULTRASOUND SCROTUM INDICATION / CLINICAL INFORMATION: severe right testicular pain not better. COMPARISON: 03/17/2020 scrotal ultrasound FINDINGS -- RIGHT TESTIS: Size = 5.1 x 3.4 x 4.1 cm. - Appearance: No significant abnormality. - Cyst or Mass: None. - Color Doppler Flow: No significant abnormality. EPIDIDYMIS: No significant abnormality. HYDROCELE: Persistent hydrocele without interval change. VARICOCELE: None demonstrated. FINDINGS -- LEFT TESTIS: Size = 5 x 3.1 x 3.7 cm. - Appearance: No significant abnormality. - Cyst or Mass: None. - Color Doppler Flow: No significant abnormality. EPIDIDYMIS: No significant abnormality. HYDROCELE: Persistent tiny left hydrocele is unchanged. VARICOCELE: None demonstrated. ADDITIONAL FINDINGS: None. IMPRESSION: 1. No evidence of testicular torsion. 2. Persistent small hydroceles, right greater than left. Signer Name: Brien Pa MD Signed: 03/20/2020 10:24 PM Workstation Name: [id number]
[2020-03-21] MEDS: methylPREDNISolone Sod Succinate 125 MG/2 ML INJ IV SCH ×2 (01:37→05:20)
[2020-03-21] MEDS: oxyCODONE /ACETAMINOPHEN 5-325MG TAB PO PRN (05:21)
[2020-03-21] MEDS: metroNIDAZOLE/NS 500 MG/100 ML 500 MG/100 ML BAG IV SCH (05:21)
[2020-03-21] MEDS: IPRATROPIUM 0.02% NEBU 2.5 ML IH SCH ×4 (05:22→22:31)
--- NOTE | 2020-03-21 07:48 | Progress Note ---
Assessment and Plan 74 y/o male with COPD exacerbation and acute respiratory failure secondary to sepsis from testicular issues. 1. Continue BID pulmicort and Brovana 2. Continue PRN neb treatments. 3. Will drop steroids to 40q8 4. Patient unable to tolerate full facemask bipap. Needs to likely have a repeat study [facility] the [facility] to see if he would qualify for just the nasal mask or for nasal pillows 5. Continue graham and montior urine output. 6. IV abx therapy per ID Subjective Date of service: 03/21/20 Principal diagnosis: sepsis Interval history: No acute events. Transferred up to floor. Remains on 3 liters which is his baseline flow with good sats. Sugars elevated, likely secondary to the steroids. Objective Vital Signs - 12hr 03/20/20 03/20/20 03/20/20 22:00 22:01 22:02 Temperature Pulse Rate Pulse Rate [ 78 Anterior Bilateral Throughout] Respiratory Rate Respiratory 20 Rate [Anterior Bilateral Throughout] Blood Pressure Blood Pressure [Right] O2 Sat by Pulse 98 98 Oximetry 03/20/20 03/20/20 03/21/20 23:49 23:57 04:28 Temperature 97.6 F 97.9 F 97.6 F Pulse Rate 74 96 H 71 Pulse Rate [ Anterior Bilateral Throughout] Respiratory 20 20 20 Rate Respiratory Rate [Anterior Bilateral Throughout] Blood Pressure 136/73 139/76 Blood Pressure 131/77 [Right] O2 Sat by Pulse 94 96 97 Oximetry Constitutional: appears uncomfortable Eyes: non-icteric ENT: oropharynx moist Neck: supple, no JVD Effort: mildly labored Ascultation: Bilateral: diminished breath sounds, wheezes Percussion: Bilateral: not dull Tactile fremitus: Bilateral: normal Cardiovascular: regular rate and rhythm Gastrointestinal: normoactive bowel sounds, soft Extremities: no edema, pink and warm Neurologic: normal mental status, non-focal exam Psychiatric: mood appropriate CBC and BMP: 03/20/20 05:47 03/20/20 05:47 ABG, PT/INR, D-dimer: PT/INR, D-dimer PT 14.7 Sec. (12.2-14.9) 03/17/20 22:20 INR 1.17 (0.87-1.13) H 03/17/20 22:20 D-Dimer 701.67 ng/mlDDU (0-234) H 03/18/20 03:27 Abnormal lab findings: Abnormal Labs 03/17/20 03/17/20 03/17/20 22:20 22:20 22:20 WBC 22.0 H Hgb 11.5 L Hct 35.0 L MCH RDW 15.4 H Seg Neuts % (Manual) 88.0 H Lymphocytes % (Manual) 7.0 L Monocytes % (Manual) Basophils % (Manual) Seg Neutrophils # Man 19.4 H Monocytes # (Manual) 1.1 H Basophils # (Manual) INR 1.17 H D-Dimer Sodium 134 L Chloride 89.7 L Carbon Dioxide 31 H BUN 24 H Glucose 160 H POC Glucose Calcium Ferritin Lactate Dehydrogenase C-Reactive Protein NT-Pro-B Natriuret Pep Albumin Urine WBC (Auto) 03/17/20 03/17/20 03/18/20 22:20 23:02 03:27 WBC Hgb Hct MCH RDW Seg Neuts % (Manual) Lymphocytes % (Manual) Monocytes % (Manual) Basophils % (Manual) Seg Neutrophils # Man Monocytes # (Manual) Basophils # (Manual) INR D-Dimer 701.67 H Sodium Chloride Carbon Dioxide BUN Glucose POC Glucose Calcium Ferritin Lactate Dehydrogenase C-Reactive Protein NT-Pro-B Natriuret Pep 1041 H Albumin 3.4 L Urine WBC (Auto) > 182.0 H 03/18/20 03/18/20 03/18/20 03:27 03:27 09:04 WBC 21.2 H Hgb 11.4 L Hct MCH 27 L RDW 15.8 H Seg Neuts % (Manual) 83.0 H Lymphocytes % (Manual) 7.0 L Monocytes % (Manual) 8.0 H Basophils % (Manual) 2.0 H Seg Neutrophils # Man 17.6 H Monocytes # (Manual) 1.7 H Basophils # (Manual) 0.4 H INR D-Dimer Sodium Chloride Carbon Dioxide BUN Glucose 181 H POC Glucose Calcium Ferritin 405.9 H Lactate Dehydrogenase 352 H C-Reactive Protein 26.60 H NT-Pro-B Natriuret Pep Albumin Urine WBC (Auto) 03/18/20 03/18/20 03/18/20 09:04 09:09 11:59 WBC Hgb Hct MCH RDW Seg Neuts % (Manual) Lymphocytes % (Manual) Monocytes % (Manual) Basophils % (Manual) Seg Neutrophils # Man Monocytes # (Manual) Basophils # (Manual) INR D-Dimer Sodium 132 L Chloride 90.4 L Carbon Dioxide BUN 28 H Glucose 193 H POC Glucose 194 H 229 H Calcium Ferritin Lactate Dehydrogenase C-Reactive Protein NT-Pro-B Natriuret Pep Albumin Urine WBC (Auto) 03/18/20 03/19/20 03/19/20 17:18 00:30 04:04 WBC 16.5 H Hgb 10.1 L Hct 31.9 L MCH 27 L RDW 15.6 H Seg Neuts % (Manual) Lymphocytes % (Manual) Monocytes % (Manual) Basophils % (Manual) Seg Neutrophils # Man Monocytes # (Manual) Basophils # (Manual) INR D-Dimer Sodium Chloride Carbon Dioxide BUN Glucose POC Glucose 182 H 175 H Calcium Ferritin Lactate Dehydrogenase C-Reactive Protein NT-Pro-B Natriuret Pep Albumin Urine WBC (Auto) 03/19/20 03/19/20 03/19/20 04:04 08:42 11:42 WBC Hgb Hct MCH RDW Seg Neuts % (Manual) Lymphocytes % (Manual) Monocytes % (Manual) Basophils % (Manual) Seg Neutrophils # Man Monocytes # (Manual) Basophils # (Manual) INR D-Dimer Sodium 134 L Chloride 92.0 L Carbon Dioxide BUN 24 H Glucose 245 H POC Glucose 226 H 216 H Calcium Ferritin Lactate Dehydrogenase C-Reactive Protein NT-Pro-B Natriuret Pep Albumin Urine WBC (Auto) 03/19/20 03/19/20 03/20/20 15:44 22:54 05:47 WBC 14.5 H Hgb 10.3 L Hct 32.3 L MCH 27 L RDW 15.5 H Seg Neuts % (Manual) Lymphocytes % (Manual) Monocytes % (Manual) Basophils % (Manual) Seg Neutrophils # Man Monocytes # (Manual) Basophils # (Manual) INR D-Dimer Sodium Chloride Carbon Dioxide BUN Glucose POC Glucose 183 H 262 H Calcium Ferritin Lactate Dehydrogenase C-Reactive Protein NT-Pro-B Natriuret Pep Albumin Urine WBC (Auto) 03/20/20 03/20/20 03/20/20 05:47 08:13 11:20 WBC Hgb Hct MCH RDW Seg Neuts % (Manual) Lymphocytes % (Manual) Monocytes % (Manual) Basophils % (Manual) Seg Neutrophils # Man Monocytes # (Manual) Basophils # (Manual) INR D-Dimer Sodium Chloride Carbon Dioxide BUN 23 H Glucose 258 H POC Glucose 272 H 422 H Calcium 8.2 L Ferritin Lactate Dehydrogenase C-Reactive Protein NT-Pro-B Natriuret Pep Albumin Urine WBC (Auto) 03/20/20 03/20/20 16:53 22:32 WBC Hgb Hct MCH RDW Seg Neuts % (Manual) Lymphocytes % (Manual) Monocytes % (Manual) Basophils % (Manual) Seg Neutrophils # Man Monocytes # (Manual) Basophils # (Manual) INR D-Dimer Sodium Chloride Carbon Dioxide BUN Glucose POC Glucose 416 H 230 H Calcium Ferritin Lactate Dehydrogenase C-Reactive Protein NT-Pro-B Natriuret Pep Albumin Urine WBC (Auto)
--- NOTE | 2020-03-21 09:11 | Progress Note ---
Assessment and Plan Assessment and plan: 74-year-old man with a history of hypertension, diabetes, BPH, COPD comes emergency room for evaluation. Patient states that over the last 1 day he was unable to urinate and his right testicle was painful over the last 2 days. He denies fever, cough, chills, diarrhea, sick contact, dysuria, frequency. The patient will be admitted for urinary retention, UTI, testicular pain CTAP: Nonspecific scrotal skin thickening suggestive of a cellulitis. No discrete abscess or soft tissue gas. Small right hydrocele. Hepatic steatosis. Cholecystectomy 03/21: Still with exertional shortness of breath. Edema in lower ext, scrotal swelling. On home o2 at 3liters, will increase to 4 liters NC, will give a dose of lasix x 1 today and also will obtain and ECHO AND PT/OT for discharge planning. Sepsis/UTI/SCROTAL Cellulites Continue abx ID consulted Sepsis protocol Acute Cystitis Follow urine culture continue abx Acute Hypoxemic Respiratory failure Wean off High flow oxygen Pulmonary consult Resume home meds and taper steroids as needed Outpatient sleep study Continue Pulmicort and Brovana Urinary retention/hydrocele status post Haskisn, consult urology- discussed with them Urology recommends discharge with Haskins. Pneumonia Ruled out COVID19 ID following Monitor Cultures Diabetes Mellitus Check fingersticks, start sliding scale Blood sugar still significantly elevated secondary to steroid therapy. Will adjust insulin and also give additional 12 units of regular insulin today. Hypertension Continue appropriate outpatient medications DVT prophylaxis Discussed with ID Anticipate discharge in a.m. possibly. History Interval history: Patient seen and examined, reports pain in the scrotal area, but not as tender as yesterday. He reports exertional dyspnea and notes that he normally uses 3 L at home but not at his baseline at this time. Hospitalist Physical - Physical exam Narrative exam: Gen. appearance: Patient lying in bed, no distress while sitting except when moving around HEENT: Normocephalic, atraumatic, pupils equally round and reactive to light, extraocular movement intact, and no sclericterus,. No JVD or thyromegaly or nodule,neck supple, no carotid bruit ,mucous membranes moist, no exudate or erythema Heart: S1, S2, regular rate and rhythm Lungs: Crackles, breathing comfortable Abdomen: Positive bowel sounds, nontender, nondistended, no organomegaly Extremity: Trace bilateral pitting edema, cyanosis, clubbing Skin: No rash, erythema around the scrotal area with scrotal swelling. Nodules, warm, dry Neuro: Cranial nerves II through XII, speech is fluent, moves extremities, sensory intact - Constitutional Vitals: Temp Pulse Resp BP Pulse Ox 98.4 F 71 20 151/79 98 03/21/20 07:32 03/21/20 07:32 03/21/20 07:32 03/21/20 07:32 03/21/20 07:32 Results - Labs CBC & Chem 7: 03/20/20 05:47 03/20/20 05:47 Labs: Laboratory Last Values WBC 14.5 K/mm3 (4.5-11.0) H 03/20/20 05:47 RBC 3.79 M/mm3 (3.65-5.03) 03/20/20 05:47 Hgb 10.3 gm/dl (11.8-15.2) L 03/20/20 05:47 Hct 32.3 % (35.5-45.6) L 03/20/20 05:47 MCV 85 fl (84-94) 03/20/20 05:47 MCH 27 pg (28-32) L 03/20/20 05:47 MCHC 32 % (32-34) 03/20/20 05:47 RDW 15.5 % (13.2-15.2) H 03/20/20 05:47 Plt Count 233 K/mm3 (140-440) 03/20/20 05:47 Add Manual Diff Complete 03/18/20 09:04 Total Counted 100 03/18/20 09:04 Seg Neuts % (Manual) 83.0 % (40.0-70.0) H 03/18/20 09:04 Band Neutrophils % 0 % 03/18/20 09:04 Lymphocytes % (Manual) 7.0 % (13.4-35.0) L 03/18/20 09:04 Reactive Lymphs % (Man) 0 % 03/18/20 09:04 Monocytes % (Manual) 8.0 % (0.0-7.3) H 03/18/20 09:04 Eosinophils % (Manual) 0 % (0.0-4.3) 03/18/20 09:04 Basophils % (Manual) 2.0 % (0.0-1.8) H 03/18/20 09:04 Metamyelocytes % 0 % 03/18/20 09:04 Myelocytes % 0 % 03/18/20 09:04 Promyelocytes % 0 % 03/18/20 09:04 Blast Cells % 0 % 03/18/20 09:04 Nucleated RBC % Not Reportable 03/18/20 09:04 Seg Neutrophils # Man 17.6 K/mm3 (1.8-7.7) H 03/18/20 09:04 Band Neutrophils # 0.0 K/mm3 03/18/20 09:04 Lymphocytes # (Manual) 1.5 K/mm3 (1.2-5.4) 03/18/20 09:04 Abs React Lymphs (Man) 0.0 K/mm3 03/18/20 09:04 Monocytes # (Manual) 1.7 K/mm3 (0.0-0.8) H 03/18/20 09:04 Eosinophils # (Manual) 0.0 K/mm3 (0.0-0.4) 03/18/20 09:04 Basophils # (Manual) 0.4 K/mm3 (0.0-0.1) H 03/18/20 09:04 Metamyelocytes # 0.0 K/mm3 03/18/20 09:04 Myelocytes # 0.0 K/mm3 03/18/20 09:04 Promyelocytes # 0.0 K/mm3 03/18/20 09:04 Blast Cells # 0.0 K/mm3 03/18/20 09:04 WBC Morphology 1+ 03/18/20 09:04 WBC Morphology Not Reportable 03/18/20 09:04 Hypersegmented Neuts Not Reportable 03/18/20 09:04 Hyposegmented Neuts Not Reportable 03/18/20 09:04 Hypogranular Neuts Not Reportable 03/18/20 09:04 Smudge Cells Not Reportable 03/18/20 09:04 Toxic Granulation Not Reportable 03/18/20 09:04 Toxic Vacuolation Not Reportable 03/18/20 09:04 Dohle Bodies Not Reportable 03/18/20 09:04 Pelger-Huet Anomaly Not Reportable 03/18/20 09:04 Rosario Rods Not Reportable 03/18/20 09:04 Platelet Estimate Consistent w auto 03/18/20 09:04 Clumped Platelets Not Reportable 03/18/20 09:04 Plt Clumps, EDTA Not Reportable 03/18/20 09:04 Large Platelets Not Reportable 03/18/20 09:04 Giant Platelets Not Reportable 03/18/20 09:04 Platelet Satelliting Not Reportable 03/18/20 09:04 Plt Morphology Comment Not Reportable 03/18/20 09:04 RBC Morphology Normal 03/18/20 09:04 Dimorphic RBCs Not Reportable 03/18/20 09:04 Polychromasia Not Reportable 03/18/20 09:04 Hypochromasia Not Reportable 03/18/20 09:04 Poikilocytosis Not Reportable 03/18/20 09:04 Anisocytosis Not Reportable 03/18/20 09:04 Microcytosis Not Reportable 03/18/20 09:04 Macrocytosis Not Reportable 03/18/20 09:04 Spherocytes Not Reportable 03/18/20 09:04 Pappenheimer Bodies Not Reportable 03/18/20 09:04 Sickle Cells Not Reportable 03/18/20 09:04 Target Cells Not Reportable 03/18/20 09:04 Tear Drop Cells Not Reportable 03/18/20 09:04 Ovalocytes Not Reportable 03/18/20 09:04 Helmet Cells Not Reportable 03/18/20 09:04 Alberto-Goltry Bodies Not Reportable 03/18/20 09:04 Luther Rings Not Reportable 03/18/20 09:04 Renetta Cells Not Reportable 03/18/20 09:04 Bite Cells Not Reportable 03/18/20 09:04 Crenated Cell Not Reportable 03/18/20 09:04 Elliptocytes Not Reportable 03/18/20 09:04 Acanthocytes (Spur) Not Reportable 03/18/20 09:04 Rouleaux Not Reportable 03/18/20 09:04 Hemoglobin C Crystals Not Reportable 03/18/20 09:04 Schistocytes Not Reportable 03/18/20 09:04 Malaria parasites Not Reportable 03/18/20 09:04 Christopher Bodies Not Reportable 03/18/20 09:04 Hem Pathologist Commnt No 03/18/20 09:04 PT 14.7 Sec. (12.2-14.9) 03/17/20 22:20 INR 1.17 (0.87-1.13) H 03/17/20 22:20 APTT 25.7 Sec. (24.2-36.6) 03/17/20 22:20 D-Dimer 701.67 ng/mlDDU (0-234) H 03/18/20 03:27 Sodium 140 mmol/L (137-145) 03/20/20 05:47 Potassium 4.4 mmol/L (3.6-5.0) 03/20/20 05:47 Chloride 98.9 mmol/L (98-107) 03/20/20 05:47 Carbon Dioxide 28 mmol/L (22-30) 03/20/20 05:47 Anion Gap 18 mmol/L 03/20/20 05:47 BUN 23 mg/dL (9-20) H 03/20/20 05:47 Creatinine 1.0 mg/dL (0.8-1.5) 03/20/20 05:47 Estimated GFR > 60 ml/min 03/20/20 05:47 BUN/Creatinine Ratio 23 % 03/20/20 05:47 Glucose 258 mg/dL (75-100) H 03/20/20 05:47 POC Glucose 230 (70-105) H 03/20/20 22:32 Lactic Acid 1.30 mmol/L (0.7-2.0) 03/18/20 09:04 Calcium 8.2 mg/dL (8.4-10.2) L 03/20/20 05:47 Ferritin 405.9 ng/mL (13.0-400.0) H 03/18/20 03:27 Total Bilirubin 0.60 mg/dL (0.1-1.2) 03/17/20 22:20 Direct Bilirubin 0.2 mg/dL (0-0.2) 03/17/20 22:20 Indirect Bilirubin 0.4 mg/dL 03/17/20 22:20 AST 34 units/L (5-40) 03/17/20 22:20 ALT 28 units/L (7-56) 03/17/20 22:20 Alkaline Phosphatase 54 units/L (35-129) 03/17/20 22:20 Lactate Dehydrogenase 352 units/L (91-180) H 03/18/20 03:27 Troponin T < 0.010 ng/mL (0.00-0.029) 03/17/20 22: C-Reactive Protein 26.60 mg/dL (0.00-1.30) H 03/18/20 03:27 NT-Pro-B Natriuret Pep 1041 pg/mL (0-900) H 03/17/20 22: Total Protein 6.7 g/dL (6.3-8.2) 03/17/20 22: Albumin 3.4 g/dL (3.9-5) L 03/17/20 22: Albumin/Globulin Ratio 1.0 % 03/17/20 22: Procalcitonin 8.71 ng/mL (<0.15) 03/18/20 03:27 Urine Color Yellow (Yellow) 03/17/20 23: Urine Turbidity Cloudy (Clear) 03/17/20 23: Urine pH 6.0 (5.0-7.0) 03/17/20 23: Ur Specific Lincoln 1.013 (1.003-1.030) 03/17/20 23: Urine Protein 30 mg/dl mg/dL (Negative) 03/17/20 23: Urine Glucose (UA) 50 mg/dL (Negative) 03/17/20 23: Urine Ketones Neg mg/dL (Negative) 03/17/20 23: Urine Blood Mod (Negative) 03/17/20 23: Urine Nitrite Neg (Negative) 03/17/20 23: Urine Bilirubin Neg (Negative) 03/17/20 23: Urine Urobilinogen < 2.0 mg/dL (<2.0) 03/17/20 23: Ur Leukocyte Esterase Lg (Negative) 03/17/20 23:02 Urine WBC (Auto) > 182.0 /HPF (0.0-6.0) H 03/17/20 23: Urine RBC (Auto) 2.0 /HPF (0.0-6.0) 03/17/20 23: Urine Bacteria (Auto) 2+ /HPF (Negative) 03/17/20 23:02 Urine WBC Clumps 3+ /HPF 03/17/20 23:02 Urine Mucus 2+ /HPF 03/17/20 23: Coronavirus (PCR) Negative (Negative) 03/18/20 Unknown Microbiology: Microbiology 03/17/20 23:18 Peripheral/Venous Blood Culture - Preliminary NO GROWTH AFTER 72 HOURS 03/17/20 23:18 Peripheral/Venous Blood Culture - Preliminary NO GROWTH AFTER 72 HOURS Haskins/IV: Voiding Method Indwelling Catheter IV Catheter Type [Right Hand] INT / Saline Lock IV Catheter Type [Right INT / Saline Lock Forearm] IV Catheter Type [Left Hand] INT / Saline Lock Active Medications - Current Medications Current Medications: Generic Name Dose Route Start Last Admin Trade Name Freq PRN Reason Stop Dose Admin Acetaminophen 650 mg 03/18/20 05:17 Tylenol PO Q4H PRN Pain MILD(1-3)/Fever >100.5/SELF Arformoterol Tartrate 15 mcg 03/19/20 10:45 03/20/20 22:00 Brovana Nebu IH 15 mcg Q12HRT EMBER Administration Budesonide 0.5 mg 03/19/20 10:45 03/20/20 22:00 Pulmicort IH 0.5 mg Q12HRT EMBER Administration Dextrose 50 ml 03/18/20 06:54 D50w (25gm) Syringe IV Q30MIN PRN Hypoglycemia Protocol Enoxaparin Sodium 40 mg 03/18/20 10:00 03/20/20 10:01 Enoxaparin SUB-Q 40 mg QDAY@1000 EMBER Administration Sodium Chloride 1,000 mls @ 75 mls/hr 03/18/20 07:00 03/20/20 07:06 Nacl 0.9% 1000 Ml IV 75 mls/hr DIRECT EMBER Administration Cefepime HCl 2 gm in 100 mls @ 200 mls/hr 03/18/20 10:00 03/20/20 22:27 Cefepime/Ns 2 Gm/100 Ml IV 200 mls/hr Q12HR EMBER Administration Metronidazole 500 mg in 100 mls @ 100 mls/hr 03/18/20 22:00 03/21/20 05:21 Flagyl 500 Mg/100 Ml IV 100 mls/hr Q8HR EMBER Administration Protocol Insulin Human Isoph/Insulin Regular 40 unit 03/20/20 17:11 Humulin 70/30 SUB-Q BIDDIAB EMBER Insulin Human Lispro 0 unit 03/18/20 07:30 03/20/20 22:27 Humalog SUB-Q 3 unit ACHS EMBER Administration Protocol Ipratropium Wellman 0.5 mg 03/19/20 11:00 03/21/20 05:22 Atrovent IH Not Given Q6HRT [facility] Methylprednisolone Sodium Succinate 40 mg 03/21/20 14:00 Solu-Medrol IV Q8HR [facility] Morphine Sulfate 2 mg 03/19/20 08:15 03/19/20 22:22 Morphine IV 2 mg Q4H PRN Administration Pain, Moderate (4-6) Ondansetron HCl 4 mg 03/18/20 05:17 Zofran IV Q8H PRN Nausea And Vomiting Oxycodone/Acetaminophen 1 tab 03/18/20 05:17 03/21/20 05:21 Percocet 5/325 PO 1 tab Q6H PRN Administration Pain, Moderate (4-6) Sodium Chloride 10 ml 03/18/20 10:00 03/20/20 22:28 Sodium Chloride Flush Syringe 10 Ml IV 10 ml BID EMBER Administration Sodium Chloride 10 ml 03/18/20 05:17 Sodium Chloride Flush Syringe 10 Ml IV PRN PRN LINE FLUSH
[2020-03-21] MEDS: INSULIN NPH/REGULAR 70/30 INJ SUB-Q SCH ×2 (09:58→18:14)
[2020-03-21] MEDS: INSULIN LISPRO 100 UNIT/ML SUB-Q SCH ×4 (09:58→23:42)
[2020-03-21] MEDS: MORPHINE 2 MG/1 ML INJ IV PRN ×3 (09:59→23:04)
[2020-03-21] MEDS: SODIUM CHLORIDE 0.9% 1000 ML 1,000 ML IV SCH (10:05)
[2020-03-21] MEDS: ENOXAPARIN 40 MG/0.4 ML INJ SUB-Q SCH (10:05)
[2020-03-21] MEDS: BUDESONIDE 0.5 MG/2 ML NEBU IH SCH ×2 (10:50→22:30)
[2020-03-21] MEDS: ARFORMOTEROL 15 MCG/2 ML NEBU IH SCH ×2 (10:50→22:30)
[2020-03-21] MEDS ORDERED: FUROSEMIDE 40 MG/4 ML INJ IV ONE (12:00)
[2020-03-21] MEDS ORDERED: methylPREDNISolone Sod Succinate 125 MG/2 ML INJ IV SCH (14:00)
--- NOTE | 2020-03-21 16:00 | Progress Note ---
Assessment and Plan Cultures: Blood culture 03/17/2020 no growth so far. COVID negative Assessment: 74 y/o male with a history of hypertension, diabetes, BPH, COPD, mordid obesity, admitted on 03/17/2020 due to 2-day history of right testicle edema, pain and erythema associated with 24 hour-history of inability to u rinate: #Severe sepsis: leukocytosis better, likely due to UTI +/- right testicular edema/pain +/- pneumonia. Very high procal 8.7. #Right scrotal cellulitis: ? unclear etiology, some better. US with moderate hydrocele. Hydroceles are usually painless unless infected. Evaluated by likely hydrocele, no Fornier. Repeat test US - persistent small angelica hydroceles R>L #Complicated UTI with urinary retention: s/p graham in the ED #Presumed pneumonia: ? CAP. COVID negative. Doubt COVID. #Elevated Ddimer ? given tachycardia and hypoxemia, unclear etiology #Acute hypoxemic respiratory failure: unclear per pulm +COPD exacerbation now on IV solumedrol #?MILI: creat 1.4, renally adjusted abx, now resolved . Recommendations: stop cefepime and metronidazole start cefazolin anticipate to d/c tomorrow on keflex 1 g po QID total 10 days till 03/27/2020 for scrotal cellulitis Will follow. Heather Bauer MD Infectious Diseases Photographer Portrait [facility] ([facility]) M [phone] O [phone] Subjective Date of service: 03/21/20 Principal diagnosis: sepsis Interval history: Now on NC 3L sat 81% c/o right testicular pain better 8 of 10, no fever Objective - Exam Narrative Exam: General appearance: Alert in NAD on NC O2 morbdily obese Eyes: anicteric sclerae, moist conjunctivae; no lid-lag; PERRLA HENT: Atraumatic; oropharynx clear Lungs: diminished bs angelica CV: RRR no murmur Abdomen: distended tense non tender Extremities: no edema, no cyanosis Genitals: right scrotum with edema, tenderness and erythema, testicle shortened, +graham in place, +left scrotum large, soft with edema Skin: No rash. Psych: anxious Neuro: alert and oriented x 3. Moving all extermities - Constitutional Vitals: Vital Signs Temp Pulse Resp BP Pulse Ox 98.0 F 75 16 159/68 81 L 03/21/20 11:48 03/21/20 11:48 03/21/20 15:35 03/21/20 11:48 03/21/20 11:48 Temperature -Last 24 Hours Temperature 98.0 F Temperature 98.4 F Temperature 97.6 F Temperature 97.9 F Temperature 97.6 F Temperature 97.5 F - Labs CBC & Chem 7: 03/20/20 05:47 03/20/20 05:47 Labs: Abnormal lab results 03/20/20 03/20/20 03/21/20 Range/Units 16:53 22:32 12:00 POC Glucose 416 H 230 H 323 H (70-105)
[2020-03-21] MEDS: methylPREDNISolone Sod Succinate 40 MG/1 ML INJ IV SCH ×2 (17:05→23:03)
[2020-03-22] MEDS: IPRATROPIUM 0.02% NEBU 2.5 ML IH SCH ×2 (05:13→08:30)
[2020-03-22] MEDS: MORPHINE 2 MG/1 ML INJ IV PRN ×2 (05:13→12:38)
[2020-03-22] MEDS: methylPREDNISolone Sod Succinate 40 MG/1 ML INJ IV SCH (05:13)
--- NOTE | 2020-03-22 08:25 | Progress Note ---
Assessment and Plan 74 y/o male with COPD exacerbation and acute respiratory failure secondary to sepsis from testicular issues. 1. Continue BID pulmicort and Brovana 2. Continue PRN neb treatments. 3. Will drop steroids to 40q8 4. Patient unable to tolerate full facemask bipap. Needs to likely have a [facility] to see if he would qualify for just the nasal mask or for nasal pillows 5. Continue graham and montior urine output. 6. IV abx therapy per ID, who have now recommended an oral regimen If discharged today, please send out on Prednisone 60 and taper as follows. 60 daily for 4 days, 40 daily for 4 days then 20 daily indefinitely until he follows up [facility]. Per patient is on chronic steroids at home but he could not tell me the dose. Would be happy to see as an outpatient, or he can follow up with [facility], patient choice. No objection to discharge from lung standpoint. Subjective Date of service: 03/22/20 Principal diagnosis: sepsis Interval history: No acute events. Objective Vital Signs - 12hr 03/21/20 03/21/20 03/21/20 20:53 22:00 22:30 Temperature Pulse Rate 77 Pulse Rate [ 77 Anterior Bilateral Throughout] Pulse Rate [ 77 From Monitor] Respiratory 16 Rate Respiratory 20 Rate [Anterior Bilateral Throughout] Respiratory 18 Rate [Right Groin] Blood Pressure O2 Sat by Pulse 97 Oximetry 03/21/20 03/22/20 03/22/20 23:04 00:04 04:14 Temperature 97.9 F 97.8 F Pulse Rate 70 67 Pulse Rate [ Anterior Bilateral Throughout] Pulse Rate [ From Monitor] Respiratory 18 16 16 Rate Respiratory Rate [Anterior Bilateral Throughout] Respiratory Rate [Right Groin] Blood Pressure 125/58 151/77 O2 Sat by Pulse 97 99 Oximetry 03/22/20 03/22/20 05:13 07:16 Temperature 97.5 F L Pulse Rate 66 Pulse Rate [ Anterior Bilateral Throughout] Pulse Rate [ From Monitor] Respiratory 18 20 Rate Respiratory Rate [Anterior Bilateral Throughout] Respiratory Rate [Right Groin] Blood Pressure 138/76 O2 Sat by Pulse 97 Oximetry Constitutional: appears uncomfortable Eyes: non-icteric ENT: oropharynx moist Neck: supple, no JVD Effort: mildly labored Ascultation: Bilateral: diminished breath sounds, wheezes Percussion: Bilateral: not dull Tactile fremitus: Bilateral: normal Cardiovascular: regular rate and rhythm Gastrointestinal: normoactive bowel sounds, soft Extremities: no edema, pink and warm Neurologic: normal mental status, non-focal exam Psychiatric: mood appropriate CBC and BMP: 03/20/20 05:47 03/20/20 05:47 ABG, PT/INR, D-dimer: PT/INR, D-dimer PT 14.7 Sec. (12.2-14.9) 03/17/20 22:20 INR 1.17 (0.87-1.13) H 03/17/20 22:20 D-Dimer 701.67 ng/mlDDU (0-234) H 03/18/20 03:27 Abnormal lab findings: Abnormal Labs 03/17/20 03/17/20 03/17/20 22:20 22:20 22:20 WBC 22.0 H Hgb 11.5 L Hct 35.0 L MCH RDW 15.4 H Seg Neuts % (Manual) 88.0 H Lymphocytes % (Manual) 7.0 L Monocytes % (Manual) Basophils % (Manual) Seg Neutrophils # Man 19.4 H Monocytes # (Manual) 1.1 H Basophils # (Manual) INR 1.17 H D-Dimer Sodium 134 L Chloride 89.7 L Carbon Dioxide 31 H BUN 24 H Glucose 160 H POC Glucose Calcium Ferritin Lactate Dehydrogenase C-Reactive Protein NT-Pro-B Natriuret Pep Albumin Urine WBC (Auto) 03/17/20 03/17/20 03/18/20 22:20 23:02 03:27 WBC Hgb Hct MCH RDW Seg Neuts % (Manual) Lymphocytes % (Manual) Monocytes % (Manual) Basophils % (Manual) Seg Neutrophils # Man Monocytes # (Manual) Basophils # (Manual) INR D-Dimer 701.67 H Sodium Chloride Carbon Dioxide BUN Glucose POC Glucose Calcium Ferritin Lactate Dehydrogenase C-Reactive Protein NT-Pro-B Natriuret Pep 1041 H Albumin 3.4 L Urine WBC (Auto) > 182.0 H 03/18/20 03/18/20 03/18/20 03:27 03:27 09:04 WBC 21.2 H Hgb 11.4 L Hct MCH 27 L RDW 15.8 H Seg Neuts % (Manual) 83.0 H Lymphocytes % (Manual) 7.0 L Monocytes % (Manual) 8.0 H Basophils % (Manual) 2.0 H Seg Neutrophils # Man 17.6 H Monocytes # (Manual) 1.7 H Basophils # (Manual) 0.4 H INR D-Dimer Sodium Chloride Carbon Dioxide BUN Glucose 181 H POC Glucose Calcium Ferritin 405.9 H Lactate Dehydrogenase 352 H C-Reactive Protein 26.60 H NT-Pro-B Natriuret Pep Albumin Urine WBC (Auto) 03/18/20 03/18/20 03/18/20 09:04 09:09 11:59 WBC Hgb Hct MCH RDW Seg Neuts % (Manual) Lymphocytes % (Manual) Monocytes % (Manual) Basophils % (Manual) Seg Neutrophils # Man Monocytes # (Manual) Basophils # (Manual) INR D-Dimer Sodium 132 L Chloride 90.4 L Carbon Dioxide BUN 28 H Glucose 193 H POC Glucose 194 H 229 H Calcium Ferritin Lactate Dehydrogenase C-Reactive Protein NT-Pro-B Natriuret Pep Albumin Urine WBC (Auto) 03/18/20 03/19/20 03/19/20 17:18 00:30 04:04 WBC 16.5 H Hgb 10.1 L Hct 31.9 L MCH 27 L RDW 15.6 H Seg Neuts % (Manual) Lymphocytes % (Manual) Monocytes % (Manual) Basophils % (Manual) Seg Neutrophils # Man Monocytes # (Manual) Basophils # (Manual) INR D-Dimer Sodium Chloride Carbon Dioxide BUN Glucose POC Glucose 182 H 175 H Calcium Ferritin Lactate Dehydrogenase C-Reactive Protein NT-Pro-B Natriuret Pep Albumin Urine WBC (Auto) 03/19/20 03/19/20 03/19/20 04:04 08:42 11:42 WBC Hgb Hct MCH RDW Seg Neuts % (Manual) Lymphocytes % (Manual) Monocytes % (Manual) Basophils % (Manual) Seg Neutrophils # Man Monocytes # (Manual) Basophils # (Manual) INR D-Dimer Sodium 134 L Chloride 92.0 L Carbon Dioxide BUN 24 H Glucose 245 H POC Glucose 226 H 216 H Calcium Ferritin Lactate Dehydrogenase C-Reactive Protein NT-Pro-B Natriuret Pep Albumin Urine WBC (Auto) 03/19/20 03/19/20 03/20/20 15:44 22:54 05:47 WBC 14.5 H Hgb 10.3 L Hct 32.3 L MCH 27 L RDW 15.5 H Seg Neuts % (Manual) Lymphocytes % (Manual) Monocytes % (Manual) Basophils % (Manual) Seg Neutrophils # Man Monocytes # (Manual) Basophils # (Manual) INR D-Dimer Sodium Chloride Carbon Dioxide BUN Glucose POC Glucose 183 H 262 H Calcium Ferritin Lactate Dehydrogenase C-Reactive Protein NT-Pro-B Natriuret Pep Albumin Urine WBC (Auto) 03/20/20 03/20/20 03/20/20 05:47 08:13 11:20 WBC Hgb Hct MCH RDW Seg Neuts % (Manual) Lymphocytes % (Manual) Monocytes % (Manual) Basophils % (Manual) Seg Neutrophils # Man Monocytes # (Manual) Basophils # (Manual) INR D-Dimer Sodium Chloride Carbon Dioxide BUN 23 H Glucose 258 H POC Glucose 272 H 422 H Calcium 8.2 L Ferritin Lactate Dehydrogenase C-Reactive Protein NT-Pro-B Natriuret Pep Albumin Urine WBC (Auto) 03/20/20 03/20/20 03/21/20 16:53 22:32 12:00 WBC Hgb Hct MCH RDW Seg Neuts % (Manual) Lymphocytes % (Manual) Monocytes % (Manual) Basophils % (Manual) Seg Neutrophils # Man Monocytes # (Manual) Basophils # (Manual) INR D-Dimer Sodium Chloride Carbon Dioxide BUN Glucose POC Glucose 416 H 230 H 323 H Calcium Ferritin Lactate Dehydrogenase C-Reactive Protein NT-Pro-B Natriuret Pep Albumin Urine WBC (Auto)
[2020-03-22] MEDS: BUDESONIDE 0.5 MG/2 ML NEBU IH SCH (08:30)
[2020-03-22] MEDS: ARFORMOTEROL 15 MCG/2 ML NEBU IH SCH (08:31)
[2020-03-22 08:46] LABS: Hematocrit 36.2 % (35.5-45.6); Hemoglobin 11.7 gm/dl (11.8-15.2); Mean Corpuscular HGB Conc 32 % (32-34); Mean Corpuscular Volume 85 fl (84-94); Platelet Count 295 K/mm3 (140-440); Red Blood Count 4.28 M/mm3 (3.65-5.03); Red Cell Distribution Width 15.5 % (13.2-15.2)
--- NOTE | 2020-03-22 09:03 | Discharge Summary ---
Providers - Providers Date of Admission: 03/18/20 04:39 Attending physician: AWILDA DORADO MD 03/18/20 05:17 Consult to Physician [CONS] Routine Comment: Consulting Provider: MAXINE ABREU Physician Instructions: Reason For Exam: pui 03/18/20 06:14 Consult to Physician [CONS] Routine Comment: Consulting Provider: YAHAIRA SALAZAR Physician Instructions: Reason For Exam: urinary retention, hydrocele Consult to Physician [CONS] Routine Comment: Consulting Provider: ADÁN CLARK Physician Instructions: Reason For Exam: covid, pna 03/18/20 16:33 Consult to Physician [CONS] Routine Comment: Consulting Provider: IRMA MATA Physician Instructions: Reason For Exam: Hypoxic Respiratory failure 03/21/20 11:10 Occupational Therapy Evaluate and Treat [CONS] Routine Comment: Reason For Exam: DEBILTIY Physical Therapy Evaluation and Treat [CONS] Routine Comment: Reason For Exam: DEBILTIY Hospitalization Reason for admission: Scrotal pain Condition: Stable Hospital course: djusted patient's insulin for better control Discussed with consultants and management team Original Note: Assessment and Plan Assessment and plan: 74-year-old man with a history of hypertension, diabetes, BPH, COPD comes emergency room for evaluation. Patient states that over the last 1 day he was unable to urinate and his right testicle was painful over the last 2 days. He denies fever, cough, chills, diarrhea, sick contact, dysuria, frequency. The patient will be admitted for urinary retention, UTI, testicular pain CTAP: Nonspecific scrotal skin thickening suggestive of a cellulitis. No discrete abscess or soft tissue gas. Small right hydrocele. Hepatic steatosis. Cholecystectomy 03/21: Still with exertional shortness of breath. Edema in lower ext, scrotal swelling. On home o2 at 3liters, will increase to 4 liters NC, will give a dose of lasix x 1 today and also will obtain and ECHO AND PT/OT for discharge planning. 03/22: Patient continues to improve doing well today stable for discharge I have discussed need to follow-up with urology care for the Graham catheter also recommended for 7 days of Lasix and asked the patient to have a repeat lab. Patient will follow with pulmonology outpatient. For outpatient sleep study steroid taper also obtained and discussed with the patient. Sepsis/UTI/SCROTAL Cellulites Acute Cystitis Acute Hypoxemic Respiratory failure Urinary retention/hydrocele status post Graham, consult urology- discussed with them Urology recommends discharge with Graham. Pneumonia Ruled out COVID19 ID following Monitor Cultures Diabetes Mellitus Check fingersticks, start sliding scale Blood sugar still significantly elevated secondary to steroid therapy. Will adjust insulin and also give additional 12 units of regular insulin today. Hypertension Continue appropriate outpatient medications Disposition: [id number] [facility] Time spent for discharge: 35 minutes Core Measure Documentation - Palliative Care Palliative Care/ Comfort Measures: Not Applicable - Core Measures Any of the following diagnoses?: none Exam - Physical Exam Narrative exam: Gen. appearance: Patient lying in bed, no distress HEENT: Normocephalic, atraumatic, pupils equally round and reactive to light, extraocular movement intact, and no sclericterus,. No JVD or thyromegaly or nodule,neck supple, no carotid bruit ,mucous membranes moist, no exudate or erythema Heart: S1, S2, regular rate and rhythm Lungs: Crackles, breathing comfortable Abdomen: Positive bowel sounds, nontender, nondistended, no organomegaly Extremity: Trace bilateral pitting edema, cyanosis, clubbing Skin: No rash, erythema around the scrotal area with scrotal swelling. Nodules, warm, dry Neuro: Cranial nerves II through XII, speech is fluent, moves extremities, sensory intact - Constitutional Vitals: Temp Pulse Resp BP Pulse Ox 97.5 F L 66 20 138/76 97 03/22/20 07:16 03/22/20 07:16 03/22/20 07:16 03/22/20 07:16 03/22/20 07:16 Plan Activity: advance as tolerated, fall precautions Diet: diabetic Special Instructions: record daily weights, record daily BP diary, record blood sugar diary Durable Medical Equipment Needed Upon Discharge: other (graham to leg bag) Follow up with: NIKOS RINCON [Other] - 3-5 Days IRMA MATA MD [Staff Physician] - 7 Days HUGO LOPEZ MD [Staff Physician] - 7 Days MAXINE ABREU MD [Staff Physician] - 7 Days Prescriptions: amLODIPine 10 mg PO DAILY #30 tab cephALEXin [Keflex] 1,000 mg PO Q6HR #40 capsule Furosemide [Lasix] 20 mg PO QDAY #7 tablet Insulin NPH/Regular [NovoLIN 70/30] 40 unit SUB-Q BIDDIAB #100 units oxyCODONE /ACETAMINOPHEN [Percocet 5/325 mg] 1 tab PO Q6H PRN #14 tablet PRN Reason: Pain, Moderate (4-6) Prednisone [predniSONE 10 mg (6-Day Pack, 21 Tabs)] 10 mg PO .TAPER #1 tab.ds.pk Albuterol INH(or & Nicu Only) [ProAir HFA Inhaler] 2 puff IH QID PRN 30 Days #1 device PRN Reason: Shortness Of Breath Budesonide/Formoterol Fumarate [Symbicort 160-4.5 Mcg Inhaler] 10.2 gm IH BID 30 Days #1 hfa.aer.ad
[2020-03-22] MEDS: INSULIN LISPRO 100 UNIT/ML SUB-Q SCH ×2 (09:16→12:37)
[2020-03-22] MEDS: INSULIN NPH/REGULAR 70/30 INJ SUB-Q SCH (09:16)
[2020-03-22] MEDS: ENOXAPARIN 40 MG/0.4 ML INJ SUB-Q SCH (09:28)
[2020-03-22 09:36] LABS: BUN/Creatinine Ratio 37; Blood Urea Nitrogen 33 mg/dL (9-20); Calcium 8.9 mg/dL (8.4-10.2); Hemolysis Index 29
[2020-03-22 10:39] LABS: Basophils % (Manual) 0 % (0.0-1.8); Eosinophils % (Manual) 0 % (0.0-4.3); Myelocytes # (Manual) 0.1 K/mm3; Platelet Estimate Consistent w Auto; RBC Morphology Normal; Total Cells Counted 100
--- NOTE | 2020-03-22 14:18 | Progress Note ---
Assessment and Plan Cultures: Blood culture 03/17/2020 no growth so far. COVID negative Assessment: 74 y/o male with a history of hypertension, diabetes, BPH, COPD, mordid obesity, admitted on 03/17/2020 due to 2-day history of right testicle edema, pain and erythema associated with 24 hour-history of inability to u rinate: #Severe sepsis: leukocytosis better, likely due to UTI +/- right testicular edema/pain +/- pneumonia. Very high procal 8.7. #Right scrotal cellulitis: ? unclear etiology, some better. US with moderate hydrocele. Hydroceles are usually painless unless infected. Evaluated by likely hydrocele, no Fornier. Repeat test US - persistent small angelica hydroceles R>L #Complicated UTI with urinary retention: s/p graham in the ED #Presumed pneumonia: ? CAP. COVID negative. Doubt COVID. #Elevated Ddimer ? given tachycardia and hypoxemia, unclear etiology #Acute hypoxemic respiratory failure: unclear per pulm +COPD exacerbation now on IV solumedrol #?MILI: creat 1.4, renally adjusted abx, now resolved . Recommendations: ok d/c tomorrow on keflex 1 g po QID total 10 days till 03/27/2020 for scrotal cellulitis will sign off Will follow. Heather Bauer MD Infectious Diseases [employer] [facility] ([facility]) M [phone] O [phone] Subjective Date of service: 03/22/20 Principal diagnosis: sepsis Interval history: Now on NC 4L no fever Objective - Exam Narrative Exam: General appearance: Alert in NAD on NC O2 morbdily obese Eyes: anicteric sclerae, moist conjunctivae; no lid-lag; PERRLA HENT: Atraumatic; oropharynx clear Lungs: diminished bs angelica CV: RRR no murmur Abdomen: distended tense non tender Extremities: no edema, no cyanosis Genitals: right scrotum with decreased edema, tenderness and erythema, testicle shortened, +graham in place, +left scrotum large, soft with edema Skin: No rash. Psych: no agitated Neuro: alert and oriented x 3. Moving all extermities - Constitutional Vitals: Vital Signs Temp Pulse Resp BP Pulse Ox 97.5 F L 80 22 138/76 98 03/22/20 07:16 03/22/20 08:30 03/22/20 08:30 03/22/20 07:16 03/22/20 09:40 Temperature -Last 24 Hours Temperature 97.5 F Temperature 97.8 F Temperature 97.9 F Temperature 97.0 F Temperature 98.5 F - Labs CBC & Chem 7: 03/22/20 08:18 03/22/20 08:18 Labs: Abnormal lab results 03/22/20 03/22/20 Range/Units 08:18 08:18 WBC 12.8 H (4.5-11.0) K/mm3 Hgb 11.7 L (11.8-15.2) gm/dl MCH 27 L (28-32) pg RDW 15.5 H (13.2-15.2) % Seg Neuts % (Manual) 89.0 H (40.0-70.0) % Lymphocytes % (Manual) 5.0 L (13.4-35.0) % Seg Neutrophils # Man 11.4 H (1.8-7.7) K/mm3 Lymphocytes # (Manual) 0.6 L (1.2-5.4) K/mm3 Chloride 97.9 L (98-107) mmol/L BUN 33 H (9-20) mg/dL Glucose 206 H (75-100) mg/dL
[2020-03-22 14:38] VITALS: BP 133/73
== END 2020-03-22 14:15 | disposition home or self-care (01) | DRG 871 ==
LOC: ED 21:56 → IMCU 03-18 04:39 → 4A 03-20 17:07
PROVIDERS: ADMIT Internal Medicine; ATTEND Internal Medicine
DX: A41.9 Sepsis, unspecified organism (principal); J18.9 Pneumonia, unspecified organism; J96.01 Acute respiratory failure with hypoxia; N17.9 Acute kidney failure, unspecified; J44.1 Chronic obstructive pulmonary disease with (acute) exacerbation; N30.00 Acute cystitis without hematuria; R33.9 Retention of urine, unspecified; N43.3 Hydrocele, unspecified; I10 Essential (primary) hypertension; E11.9 Type 2 diabetes mellitus without complications; N40.0 Benign prostatic hyperplasia without lower urinary tract symptoms; K21.9 Gastro-esophageal reflux disease without esophagitis; Z90.49 Acquired absence of other specified parts of digestive tract; Z82.49 Family history of ischemic heart disease and other diseases of the circulatory system; E66.01 Morbid (severe) obesity due to excess calories; Z68.39 Body mass index [BMI] 39.0-39.9, adult; R65.20 Severe sepsis without septic shock; I95.9 Hypotension, unspecified; Z03.818 Encounter for observation for suspected exposure to other biological agents ruled out; N49.2 Inflammatory disorders of scrotum; Z79.4 Long term (current) use of insulin
CPT/HCPCS: 36415; 71045; 74178; 80048; 80076; 81001; 82140; 82728; 82947; 82962; 83615; 83880; 84145; 84484; 85007; 85025; 85027; 85379; 85610; 85730; 86140; 87040; 87086; 93005; 93306; 93970; 93975; 94640; 94760; 99406; G0378; J0690; J0692; J1650; J1815; J1940; J1956; J2270; J2405; J2920; J2930; J3370; J7030; J7040; Q9967; U0003